=== PATIENT | male | born 1950 | race Caucasian/White ===

== ENCOUNTER 2018-03-13 08:49 | Day surgery (SDC) | payer OTHER ==
[2018-03-13] MEDS ORDERED: diphenhydrAMINE 25 MG CAP PO ONE ×2 (08:52→09:22)
[2018-03-13] MEDS ORDERED: ASPIRIN EC 325 MG TAB PO ONE ×2 (08:52→09:23)
[2018-03-13] MEDS ORDERED: DIAZEPAM 5 MG TAB PO ONE (08:52)
[2018-03-13] MEDS ORDERED: FAMOTIDINE 20 MG TAB PO ONE (08:52)
[2018-03-13] MEDS ORDERED: NS 1,000 ML IV ONE (08:52)
[2018-03-13] MEDS ORDERED: MIDAZOLAM 2 MG/2 ML VIAL IVP ONE (08:54)
[2018-03-13] MEDS ORDERED: fentaNYL 100 MCG/2 ML INJ IVP ONE (08:54)
[2018-03-13] MEDS ORDERED: BENZOCAINE UNIT DOSE SPRAY HURRICAINE MM ONE (08:54)
--- NOTE | 2018-03-13 09:19 | CPEKG ---
Heart Rate: 65 RR Interval: 923 P-R Interval: 160 QRSD Interval: 92 QT Interval: 432 QTC Interval: 450 P [place]: 43 QRS [place]: -11 T Wave [place]: 4 EKG Severity - ABNORMAL ECG - EKG Impression: SINUS RHYTHM EKG Impression: MULTIFORM VENTRICULAR PREMATURE COMPLEXES EKG Impression: BORDERLINE T ABNORMALITIES, INFERIOR LEADS EKG Impression: NON-SPECIFIC ST DEPRESSION Electronically Signed By: Tan Nazario 14-Mar-2018 15:48:10
[2018-03-13] MEDS ORDERED: FAMOTIDINE 20 MG TAB ONE (09:23)
[2018-03-13] MEDS ORDERED: DIAZEPAM 5 MG TAB ONE (09:23)
[2018-03-13 09:29] LABS: PLATELET COUNT 233 10^3/uL (150-400)
[2018-03-13 09:38] LABS: INR 0.91 (0.83-1.16); PROTIME(PATIENT) 12.5 SEC (12.0-15.0)
[2018-03-13] MEDS ORDERED: MIDAZOLAM 2 MG/2 ML VIAL ONE ×2 (09:58→10:48)
--- NOTE | 2018-03-13 09:58 | PDHPUP ---
History & Physical Update H&P update statement: This history and physical update is based on an assessment of the patient which was completed after admission or registration (within 24 hours), but prior to the surgery/procedure. H&P update: H&P reviewed & patient examined, no change in patient's condition since H&P completed
[2018-03-13] MEDS ORDERED: fentaNYL 100 MCG/2 ML INJ ONE ×2 (09:59→10:47)
--- NOTE | 2018-03-13 09:59 | PDPROPOC ---
Sedation Plan of Care Sedation Plan of Care: vital signs stable, mental status noted, patient educated of risks, benefits, alternatives, patient can tolerate sedation ASA Classification: ASA 1 Planned drugs: fentanyl, midazolam Mallampati Score: Class 1 Mallampati Reference Image: Patient passed 3-3-2 rule?: Yes
[2018-03-13] MEDS ORDERED: LIDOCAINE 1% 300 MG/30 ML SDV ONE (10:47)
[2018-03-13] MEDS ORDERED: VERAPAMIL 5 MG/2 ML VIAL ONE (10:48)
[2018-03-13] MEDS ORDERED: HEPARIN 10,000 UNIT/10 ML MDV (1,000 UNIT/ML) ONE (10:48)
[2018-03-13] MEDS ORDERED: IOPAMIDOL (ISOVUE-370) 150 ML BTL IV ONE (10:48)
--- NOTE | 2018-03-13 10:57 | ECHO ---
[email or web address] [address] Main: [phone] Fax: Transesophageal Echocardiography Name: KEVIN MIRANDA MR#: [id number] Study Date: 03/13/2018 Study Time: 09:42 AM Date of : 1950 Age: 67 year(s) Height: ( ) Weight: ( ) BSA: Gender: Male Examination: KRISTIAN Indication: Image Quality: Adequate Contrast: Requested by: Roberto Kauffman Heart Rate: Rhythm: BP: / Procedure Staff Combo Welder: Rena Mccabe [facility] Reading Physician: Roberto Kauffman MD Requesting Provider: Roberto Kauffman KRISTIAN Exam Details Patient Consent: Risks, alternatives of procedure explained to patient, informed consent obtained. Conclusions: Normal size left ventricle. Normal global systolic LV function. The ejection fraction is visually estimated to be 55 %. No regional wall motion abnormality. The left atrium is mildly dilated. An agitated saline study was performed and was negative for intracardiac shunting. Moderate to severe mitral regurgitation. Prolapse of the P2 segment of the mitral valve with possible flail leaflet. Mitral regurgitation jet directed anteriorly. 3D imaging of mitral valve performed. There is flail of the P2 segment with a ruptured chordae.. The aortic valve is normal in appearance and function. The tricuspid valve is normal in appearance and function. Trivial tricuspid valve regurgitation. Measurements: Chambers Valvular Assessment AV/MV Valvular Assessment TV/PV Normal Normal Normal Name Value Range Name Value Range Name Value Range Visual EF: 55 % Additional Measurements: Patient: KEVIN MIRANDA Study Date: 03/13/2018 Page 1 of 2 09:42 AM Findings: Left Ventricle: Normal size left ventricle. No LV hypertrophy. Normal global systolic LV function. The ejection fraction is visually estimated to be 55 %. No regional wall motion abnormality. Unable to assess diastolic dysfunction. Right Ventricle: Normal size right ventricle. Normal RV function. Left Atrium: The left atrium is mildly dilated. An agitated saline study was performed and was negative for intracardiac shunting. Right Atrium: The right atrium is normal in size. Mitral Valve: Moderate to severe mitral regurgitation. Prolapse of the P2 segment of the mitral valve with possible flail leaflet. Mitral regurgitation jet directed anteriorly. 3D imaging of mitral valve performed. There is flail of the P2 segment with a ruptured chordae.. Aortic Valve: The aortic valve is normal in appearance and function. There is no significant aortic valve regurgitation. No aortic valve stenosis is present. Tricuspid Valve: The tricuspid valve is normal in appearance and function. Trivial tricuspid valve regurgitation. Pulmonic Valve: The pulmonic valve is normal in appearance and function. There is no pulmonic regurgitation seen. Aorta: The aorta is normal. Pericardium: No pericardial effusion. No pleural effusion. l1n (No Signature Object) Patient: KEVIN MIRANDA Study Date: 03/13/2018 Page 2 of 2 09:42 AM [id number]
[2018-03-13] MEDS ORDERED: ONDANSETRON 4 MG/2 ML VIAL IVP PRN (11:49)
[2018-03-13] MEDS ORDERED: NITROGLYCERIN 0.4 MG BTL SL PRN (11:49)
[2018-03-13] MEDS ORDERED: ATROPINE SULFATE 1 MG/10 ML SYR IVP PRN (11:49)
[2018-03-13] MEDS ORDERED: HYDROCODONE/APAP 5/325 TAB PO PRN (11:49)
--- NOTE | 2018-03-13 13:42 | GCON ---
[f rep st] CONSULTATION DATE OF CONSULTATION: 03/13/2018 The patient is seen at the request of Dr. Roman Kauffman with the patient's permission. 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 RECOMMENDATIONS: This gentleman should limit his activities until he undergoes surgical intervention . He needs multivessel grafting utilizing 2 arterial conduits and a complex mitral valve repair. Th e risks and complications of surgery were reviewed at length. Alternatives including stenting which is not suitable given his anatomy and diffuse nature of his coronary disease as well as associated mi tral valve disease. Medical therapy would portend a poor prognosis. The patient is understanding of that. Risk of surgery is 1%-2%. Risk of bleeding 1% or 2%. Risk of infection 1% or 2%. Risk of s troke 1%. Carotid ultrasound is pending as is chest x-ray and he will be scheduled in the near fut e. He was advised to come to the ER if the symptoms worsen, with chest pain or shortness of breath i n the interim. CHIEF COMPLAINT: Progressive dyspnea on exertion and chest pressure with any activity. He has noted marked decrease in his stamina and physical activity ability over the last 6 months associated mostl y with shortness of breath and chest heaviness. He has had no PND or orthopnea. He has no previous known cardiac event, although his EKG and echo suggest previous inferior wall myocardial infarction. PAST MEDICAL HISTORY: Medical history is otherwise unremarkable. PAST SURGICAL HISTORY: Surgery history denied. MEDICATIONS: Co Q10, magnesium citrate, nitroglycerin, red yeast and vitamin D3. ALLERGIES: Codeine and he states that his reaction was not effective. FAMILY HISTORY: Positive for early coronary disease in multiple siblings and his father. SOCIAL HISTORY: Does not smoke or drink. He is a professional musician. REVIEW OF SYSTEMS: Except for his current complaints he does admit to anxiety and depression and occ asional dizziness. Otherwise, he is entirely asymptomatic. All 10 systems interrogated. PHYSICAL EXAMINATION: VITAL SIGNS: Blood pressure 120/80, pulse 76, respirations 14, nonlabored. H EENT: Normocephalic, PERRLA, EOMI. NECK: Without bruit, adenopathy, or thyromegaly. HEART: Rate is regular with a murmur, mitral insufficiency across the precordium. LUNGS: Clear. ABDOMEN: Soft , nontender. Bowel sounds are active. RECTAL AND GENITAL: Exams were deferred. NEUROLOGIC: He is grossly intact. Catheterization films reveal left main and severe 3-vessel disease with moderate LV dysfunction. Ech o was as documented. /[id number]/MODL
--- NOTE | 2018-03-13 16:38 | PDDXCAT ---
Diagnostic Cath Note - . 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 Abnormal stress test demonstrating a large fixed inferior defect.) - Procedure Access: left wrist Procedure: left heart catheterization, coronary angiography, left ventriculogram - Materials Left Heart Cath size: 5F Left Heart Cath materials: standard multipack (JL4, JR4, pigtail) - Findings-Left Heart Catheterization LM: Large caliber vessel. Ostial tapering to 80%. Dampening of the blood pressure noted with engagement. 40% mid lesion. LAD: Large caliber, transapical vessel with 2 principal diagonal branches. There is a long tubular 80% lesion in the mid vessel between the principal diagonal branches. In the 1st diagonal there is a mid 60% lesion. LCX: Moderate caliber. 2 obtuse marginal branches identified. The 2nd obtuse marginal contains tandem 80%/50% lesions. RCA: Dominant. The PDA and 2 posterolateral branches are identified. The vessel is mid occluded with both ipsilateral and contralateral collaterals. LVEF: 50%. Global hypokinesis. 3+ mitral regurgitation. Complications: None. Estimated blood loss: <50ml Closure method: TR Band Assessment: 1. Severe left main and three-vessel coronary artery disease as described above. 2. 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 3. Low normal left ventricular systolic function. 4. Symptoms of angina and dyspnea. Plan: The patient will be referred to Cardiovascular surgery regarding surgical epicardial coronary revascularization and mitral valve repair. Intervention: None.
== END 2018-03-13 15:43 | disposition home or self-care (01) ==
LOC: FCATH 08:49
PROVIDERS: ATTEND Internal Medicine Cardiovascular Disease
PROC: 4A023N7 Measurement of Cardiac Sampling and Pressure, Left Heart, Percutaneous Approach (ICD-10-PCS; principal; 2018-03-13)
PROC: B246ZZ4 Ultrasonography of Right and Left Heart, Transesophageal (ICD-10-PCS; principal; 2018-03-13)
PROC: B2151ZZ Fluoroscopy of Left Heart using Low Osmolar Contrast (ICD-10-PCS; principal; 2018-03-13)
DX: I34.1 Nonrheumatic mitral (valve) prolapse (principal); I34.0 Nonrheumatic mitral (valve) insufficiency; I25.119 Atherosclerotic heart disease of native coronary artery with unspecified angina pectoris; R94.39 Abnormal result of other cardiovascular function study; R06.09 Other forms of dyspnea; I77.9 Disorder of arteries and arterioles, unspecified; E78.5 Hyperlipidemia, unspecified; R42 Dizziness and giddiness; F41.9 Anxiety disorder, unspecified; F32.9 Major depressive disorder, single episode, unspecified; Z82.49 Family history of ischemic heart disease and other diseases of the circulatory system
CPT/HCPCS: C1769; J1644; J2250; J3010; Q9967

== ENCOUNTER 2018-03-25 07:15 | Inpatient (IN) | payer OTHER ==
[~2018-03-25 07:15] MED LIST: AMINOCAPROIC ACID 5 GM/20 ML VIAL IV ONE; INSULIN REGULAR HUMAN 100 UNIT in NS 100 ML IV ONE; MANNITOL 25% 12.5 GM/50 ML VIAL IVP ONE; NOREPINEPHRINE BITARTRATE 16 MG in NS 250 ML IV ONE; PHENYLEPHRINE HCL 50 MG in NS 250 ML IV ONE; SODIUM BICARBONATE 20 MEQ, LIDOCAINE 1% 10 ML in NORMOSOL-R 1,000 ML MISC ONE; VERAPAMIL 5 MG, NITROGLYCERIN 2.5 MG, HEPARIN 500 UNIT, SODIUM BICARBONATE 0.2 MEQ in L... MISC ONE
[2018-03-25] MEDS ORDERED: MILRINONE/DEXTROSE/100 ML BAG IV ONE (07:59)
[2018-03-25] MEDS ORDERED: CALCIUM CHLORIDE 1 GM/10 ML INJ ONE ×2 (07:59→08:03)
[2018-03-25] MEDS ORDERED: PROTAMINE SULFATE 50 MG/5 ML VIAL IVP ONE (07:59)
[2018-03-25] MEDS ORDERED: NA BICARBONATE 50 MEQ/50 ML VIAL ONE ×3 (08:00→17:16)
[2018-03-25] MEDS ORDERED: HEPARIN 10,000 UNIT/10 ML MDV (1,000 UNIT/ML) ONE ×2 (08:00→08:03)
[2018-03-25] MEDS ORDERED: DOPamine/DEXTROSE/250 ML BAG IV ONE ×2 (08:00→23:46)
[2018-03-25] MEDS ORDERED: ADENOSINE 6 MG/2 ML VIAL ONE (08:01)
[2018-03-25] MEDS ORDERED: niCARdipine/NACL/200 ML BAG IV ONE (08:01)
[2018-03-25] MEDS ORDERED: AMIODARONE HCL 150 MG/3 ML VIAL ONE ×2 (08:01→08:04)
[2018-03-25] MEDS ORDERED: ceFAZolin 1 GM VIAL ONE (08:01)
[2018-03-25] MEDS ORDERED: ALBUMIN 5% 250 ML BOTTLE IV ONE ×2 (08:02→12:02)
[2018-03-25] MEDS ORDERED: CITRATE DEXTROSE SOLN 500 ML BAG ONE (08:03)
[2018-03-25] MEDS ORDERED: LIDOCAINE 2% 100 MG/5 ML SYR ONE ×2 (08:03→10:36)
[2018-03-25] MEDS ORDERED: MAGNESIUM SULFATE 1 GM/2 ML VIAL ONE (08:04)
[2018-03-25] MEDS ORDERED: methylPREDNISolone SOD SUCC 1 GM/8 ML VIAL ONE (08:04)
[2018-03-25] MEDS ORDERED: MINERAL OIL 10 ML VIAL ONE (08:21)
[2018-03-25] MEDS ORDERED: VERAPAMIL 5 MG/2 ML VIAL ONE (08:22)
[2018-03-25] MEDS ORDERED: CITRATE DEXTROSE SOLN 500 ML BAG MISC ONE (09:22)
[2018-03-25] MEDS ORDERED: niCARdipine/NACL 200 ML IV SCH (09:22)
[2018-03-25] MEDS ORDERED: ceFAZolin 2 GM/SWFI 2 GM/20 ML SYR IVP ONE (09:22)
[2018-03-25] MEDS ORDERED: MUPIROCIN 2% 22 GM OINT NS ONE (09:22)
[2018-03-25] MEDS ORDERED: LR 1,000 ML IV ONE (09:24)
[2018-03-25] MEDS ORDERED: LIDOCAINE 1% 2 ML INJ ID PRN (09:24)
[2018-03-25] MEDS ORDERED: MIDAZOLAM 2 MG/2 ML VIAL IVP ONE (10:17)
--- NOTE | 2018-03-25 10:19 | PDANEPAE ---
ANE History of Present Illness CAD and MR, s/f CABG and MVR ANE Past Medical History - Cardiovascular History Hx Hypertension: No Hx Arrhythmias: No Hx Chest Pain: No Hx Coronary Artery / Peripheral Vascular Disease: Yes Hx CHF / Valvular Disease: Yes Hx Palpitations: No Cardiovascular History Comment: MITRAL VALVE - Pulmonary History Hx COPD: No Hx Asthma/Reactive Airway Disease: No Hx Recent Upper Respiratory Infection: No Hx Oxygen in Use at Home: No Hx Sleep Apnea: No Sleep Apnea Screening Result - Last Documented: Negative - Neurologic History Hx Cerebrovascular Accident: No Hx Seizures: No Hx Dementia: No - Endocrine History Hx Diabetes: No - Renal History Hx Renal Disorders: No - Liver History Hx Hepatic Disorders: No - Neurological & Psychiatric Hx Hx Neurological and Psychiatric Disorders: No - Cancer History Hx Cancer: No - Congenital Disorder History Hx Congenital Disorders: No - GI History Hx Gastrointestinal Disorders: No - Other Health History Other Health History: STREP L NOSTRIL USEING NEOSPORIN. MILD GLAUCOMA NO TREATMENT - Chronic Pain History Chronic Pain: Yes (L RIB CAGE SORE) - Surgical History Prior Surgeries: NONE ANE Review of Systems Review of Systems: - Exercise capacity METS (RN): 4 METS ANE Patient History - Allergies Allergies/Adverse Reactions: codeine Allergy (Verified 03/20/18 15:15) "DOESN'T WORK" - Home Medications Home medications: home medication list seen and reviewed Home Medications: Cholecalciferol Vit D3 [Vitamin D3 (*)] 1,000 units PO DAILY 03/06/18 [Last Taken 03/13/18 07:30] Herbals/Supplements -Info Only 1 ea PO DAILY 03/06/18 [Last Taken 03/13/18 07:30 ] Nitroglycerin [Nitrostat 0.4 mg (*)] 0.4 mg SL Q5M PRN 03/06/18 [Last Taken Unknown] Aspirin [Aspirin 81mg (*)] 81 mg PO DAILY 03/13/18 [Last Taken 03/12/18 08:00] - NPO status NPO Since - Liquids (Date): 03/24/18 NPO Since - Liquids (Time): 23:45 NPO Since - Solids (Date): 03/24/18 NPO Since - Solids (Time): 20:00 - Anes Hx Anes Hx: no prior problems - Smoking Hx Smoking Status: Never smoked - Alcohol Use Alcohol Use: Rarely - Family Anes Hx Family Anes Hx: none Family Hx Anesthesia Complications: NONE ANE Labs/Vital Signs - Labs - CBC WBC: reviewed and okay - Vital Signs Blood Pressure: 156/87 Heart Rate: 69 Respiratory Rate: 16 O2 Sat (%): 94 Height: 167.64 cm Weight: 70.307 kg ANE Physical Exam - Airway Neck exam: FROM Mallampati Score: Class 2 Mouth exam: normal dental/mouth exam - Pulmonary Pulmonary: no respiratory distress - Cardiovascular Cardiovascular: regular rate and rhythym - ASA Status ASA Status: III ANE Anesthesia Plan Anesthesia Plan: general endotracheal anesthesia Lines/Monitors: arterial line, central line, KRISTIAN
[2018-03-25] MEDS ORDERED: MIDAZOLAM 2 MG/2 ML VIAL ONE ×2 (10:22→10:32)
[2018-03-25] MEDS ORDERED: DEXMEDETOMIDINE HCL 400 MCG in NS 100 ML IV SCH (10:30)
[2018-03-25] MEDS ORDERED: PROPOFOL/EMULSION 500 MG/50 ML BOTTLE IV ONE ×2 (10:32→13:33)
[2018-03-25] MEDS ORDERED: fentaNYL 250 MCG/5 ML INJ ONE (10:32)
[2018-03-25] MEDS ORDERED: REMIFENTANIL HCL 1 MG VIAL ONE (10:32)
[2018-03-25] MEDS ORDERED: ROCURONIUM 100 MG/10 ML VIAL ONE (10:36)
[2018-03-25] MEDS ORDERED: LIDOCAINE HCL 160 MG/4 ML LTA KIT TP ONE (10:36)
[2018-03-25] MEDS ORDERED: ONDANSETRON 4 MG/2 ML VIAL ONE (10:36)
[2018-03-25] MEDS ORDERED: DEXAMETHASONE 4 MG/ML VIAL ONE ×2 (10:36)
[2018-03-25] MEDS ORDERED: ESMOLOL HCL 100 MG/10 ML VIAL IV ONE (11:33)
[2018-03-25] MEDS ORDERED: MAGNESIUM SULF 2 GM/WATER 50 ML BAG IV ONE (12:02)
[2018-03-25] MEDS ORDERED: PHENYLEPHRINE HCL 100 MCG/ML SYR ONE ×2 (12:24)
[2018-03-25] MEDS: PAPAVERINE HCL 60 MG/2 ML SDV ONE ×2 (14:31→14:44)
[2018-03-25] MEDS ORDERED: fentaNYL 100 MCG/2 ML INJ ONE (16:05)
[2018-03-25] MEDS ORDERED: SODIUM CL NASAL 45 ML BTL EACHNARE PRN (16:23)
[2018-03-25] MEDS ORDERED: MAGNESIUM SULF 2 GM/WATER 50 ML IV ONE (16:23)
[2018-03-25] MEDS ORDERED: ONDANSETRON DISINTEGRATING 4 MG TAB PO PRN (16:23)
[2018-03-25] MEDS ORDERED: D50W 25 GM/50 ML SYR IVP PRN (16:23)
[2018-03-25] MEDS ORDERED: ONDANSETRON 4 MG/2 ML VIAL IVP PRN (16:23)
[2018-03-25] MEDS ORDERED: POTASSIUM Cl (KCl) 50 ML IV PRN (16:23)
[2018-03-25] MEDS ORDERED: METOCLOPRAMIDE 10 MG/2 ML VIAL IVP PRN (16:23)
[2018-03-25] MEDS ORDERED: PANTOPRAZOLE SODIUM 40 MG VIAL IVP ONE (16:23)
[2018-03-25] MEDS ORDERED: ACETAMINOPHEN 650 MG SUPP PR PRN (16:23)
[2018-03-25] MEDS ORDERED: MEPERIDINE 25 MG/0.5 ML AMP IVP PRN (16:23)
[2018-03-25] MEDS ORDERED: HYDROCODONE/APAP 5/325 TAB PO PRN (16:23)
[2018-03-25] MEDS ORDERED: MAGNESIUM HYDROXIDE 30 ML UDCUP PO PRN (16:23)
[2018-03-25] MEDS ORDERED: LACTULOSE 20 GM/30 ML UDCUP PO PRN (16:23)
[2018-03-25] MEDS ORDERED: CEPACOL LOZENGE PO PRN (16:23)
[2018-03-25] MEDS ORDERED: POLYETHYLENE GLYCOL 3350 17 GM PKT PO PRN (16:23)
[2018-03-25] MEDS ORDERED: fentaNYL 100 MCG/2 ML INJ IVP PRN (16:23)
[2018-03-25] MEDS ORDERED: BISACODYL 10 MG SUPP PR PRN (16:23)
[2018-03-25] MEDS ORDERED: NS 1,000 ML IV SCH (16:30)
[2018-03-25] MEDS ORDERED: INSULIN REGULAR HUMAN 100 UNIT in NS 100 ML IV SCH (16:30)
--- NOTE | 2018-03-25 17:08 | CPEKG ---
Heart Rate: 80 RR Interval: 750 P-R Interval: 188 QRSD Interval: 92 QT Interval: 396 QTC Interval: 457 P [place]: 90 QRS [place]: -32 T Wave [place]: -25 EKG Severity - ABNORMAL ECG - EKG Impression: SINUS RHYTHM EKG Impression: LEFT AXIS DEVIATION EKG Impression: REPOL ABNRM SUGGESTS ISCHEMIA, INFERIOR LEADS EKG Impression: Borderline ST elevations in lateral leads Electronically Signed By: Deandre Yun 26-Mar-2018 11:14:00
[2018-03-25] MEDS ORDERED: SODIUM BICARBONATE 50 MEQ/50 ML SYR IVP ONE (17:15)
--- NOTE | 2018-03-25 17:17 | PDMN ---
Medical Necessity Medical necessity: MCG S390 CABG 4 days [facility] INPT only- CABG X4, MV repair,
--- NOTE | 2018-03-25 18:02 | POSTANESTH ---
Post Anesthetic Evaluation Cardiovascular Status: Tx Hyper/Hypo-tension Respiratory Status: Tx Decrease in SpO2 Level of Consciousness/Mental Status: Mildly Sleepy, Arousable Pain Control: Inadeq, Add Tx Required Nausea/Vomiting Control: Adequate, Prn Tx Ordered Complications Possibly Related to Anesthesia: None Noted
[2018-03-25] MEDS ORDERED: SODIUM BICARBONATE 50 MEQ/50 ML SYR IV ONE (19:00)
[2018-03-25] MEDS: ALBUMIN 5% 250 ML IV PRN ×2 (20:20→23:26)
[2018-03-25] MEDS: SENNOSIDES/DOCUSATE SODIUM TAB PO SCH (21:09)
[2018-03-25] MEDS: ceFAZolin 2 GM/SWFI 2 GM/20 ML SYR IVP SCH (21:15)
[2018-03-25] MEDS: MUPIROCIN 2% 22 GM OINT NS SCH (21:25)
[2018-03-25] MEDS ORDERED: ceFAZolin 2 GM/DEXTROSE 100 ML IV SCH (22:00)
--- NOTE | 2018-03-26 00:41 | GOP ---
[f rep st] OPERATIVE REPORT DATE OF OPERATION: 03/25/2018 SURGEON: Sriram Traylor DO JAILER CHIEF: Bam Baker PA-C. ANESTHESIOLOGIST: Dr. Huertas PREOPERATIVE DIAGNOSIS: 1. Arteriosclerotic heart disease. 2. Severe mitral insufficiency secondary to myxomatous valve disease with a ruptured P2. POSTOPERATIVE DIAGNOSIS: 1. Arteriosclerotic heart disease. 2. Severe mitral insufficiency secondary to myxomatous valve disease with a ruptured P2. PROCEDURE PERFORMED: 1. Coronary artery bypass grafting x4 with left internal mammary artery to the 2nd diagonal, sapheno us vein graft to the 1st diagonal, saphenous vein graft to the 2nd obtuse marginal branch and sapheno us vein graft to the posterior descending artery. 2. AtriClip to the left atrial appendage, 35 mm. 3. Complex mitral valve repair with a P2 resection and a sliding leaflet plasty, with a #30 Physio a nnuloplasty ring. FINDINGS: Patient presented with severe 3-vessel disease and severe mitral insufficiency. DESCRIPTION OF PROCEDURE: He was consented for surgery, brought to the operating room, intubated and monitoring lines were placed. He was prepped and draped in sterile classical manner. Sternotomy wa s performed. The mammary was harvested. Simultaneously, vein was harvested endoscopically from the left leg by CESAR Rascon, who first assisted throughout the procedure. The pericardium was opened , he was heparinized, cannulated, bypass was begun. A cardioplegic arrest was obtained with antegrad e cardioplegia, retrograde cardioplegia, topical hypothermia, and systemic cooling. Initially, the 2nd OM was grafted. It was a 1.4 mm vessel with excellent quality vein which was brou ght off the ascending aorta with a continuous running 5-0 Prolene. We then grafted the PDA, which wa s a good quality 2 mm vessel with excellent vein, which was not at that time brought off the aorta. We then grafted the 1st diagonal with vein graft, which was a 1.5 mm vessel and was anastomosed to th e ascending aorta in standard fashion. We then spent a great deal of time looking for the LAD; after the takeoff of the 2nd diagonal, it dove deep into the septum and despite multiple attempts, I was u nable to identify it. He had no significant distal vessel in order to retrograde probe nor, if we go t into trouble with the mid LAD, would I be able to safely graft him distally and for that reason, I elected to graft the 2nd diagonal which was patent, to the LAD with the mammary, and discussed the ca se with Dr. Rodriguez, who could come back and easily stent his mid LAD and proximal LAD with the other vessels grafted, should he have any evidence of ischemia. The mammary was tacked to the epicardium. We then exposed the mitral valve through the right superior pulmonary vein. A 35 mm AtriClip was albert justa on the outside of the appendage. We then put annuloplasty sutures in circumferentially and expos ed the valve. He had obvious rupture and elongation of P2 and thickening of P1 and P3. A quadrangul ar resection was performed, a sliding leaflet plasty was performed. A partial resection of the P1 an d P3 at the anulus to reduce its height was performed. We then closed that with a continuous running 4-0 Prolene suture. We then approximated the leaflet edges with interrupted Lyons-Chu 6-0 suture. D istention of the ventricle revealed no regurgitation. He was sized for a 30 Physio ring which was lizarraga tured in place with Cor-Knots. Again, distention of the ventricle revealed no regurgitation. The le ft atrium was closed. We then completed the proximal right coronary anastomosis to the ascending aorta. The cross-clamp wa s then removed with suction on the ascending aortic vent. Spontaneous cardiac activity was noted to resume. He was de-aired in Trendelenburg through the apex and ascending aortic vent. No further air was identified. He was weaned from bypass. Transesophageal echo revealed good LV function without evidence of anterior or septal dysfunction, and no mitral regurgitation, and no ZAIRA. Heparin was rev ersed with protamine. The cannula was removed and oversewn. 4 pacing wires, 2 pleural and 1 mediast inal drains were placed. The thymic fat and pericardium were closed. Chest was closed in standard f ashion. Patient was returned to ICU in stable condition. /[id number]/MODL
[2018-03-26] MEDS ORDERED: NALOXONE HCL 0.4 MG/ML INJ IVP PRN (01:47)
[2018-03-26] MEDS ORDERED: HYDROmorphONE/DILAUDID 6 MG/30 ML PCA IV PRN (01:47)
[2018-03-26] MEDS ORDERED: KETOROLAC 30 MG/1 ML SDV IVP ONE ×2 (02:00→16:45)
[2018-03-26 06:04] LABS: INR 1.17 (0.83-1.16); PROTIME(PATIENT) 15.1 SEC (12.0-15.0)
[2018-03-26 06:06] LABS: PLATELET COUNT 104 10^3/uL (150-400)
[2018-03-26] MEDS: HEPARIN 5,000 UNIT/0.5 ML INJ SC SCH ×3 (06:30→21:32)
[2018-03-26] MEDS: ceFAZolin 2 GM/SWFI 2 GM/20 ML SYR IVP SCH ×3 (06:30→21:32)
--- NOTE | 2018-03-26 06:32 | SOAPPROG ---
SOAP Progress Note Assessment/Plan: Assessment: POD#1 CABG x 4 (CALDERON-D2, SV-D1, SV-OM2, SV-PDA), complex MV rpr with #30 Physio ring, prophylactic AtriClip ligation RAOUL Sx CAD - Incomplete revasc with CABG d/t intramuscular LAD. Secondary prevention w baby ASA, BB as allowed by BP, and statin when eating well. ISCM - Old IMI with borderline low LVEF ~50%. Extubated in the OR. Hemodynamically stable overnight on low dose dopa. No dysrhythmias or backup pacing. Adequately diuresing moderate volume overload with stable renal fx. Staggered intro of heart failure meds as appropriate. 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 Antithrombotic prophylaxis with Coumadin, target INR 2-3, duration 3 mo. AF prophylaxis with BB when appropriate. Acute expected blood loss anemia - Stable. No transfusions required. Plan: Routine POD#1 orders re. drains, orals and mobility. Colloid prn CVP < 10. Lasix prn CVP > 18. Transition to oral analgesia. Start coumadin today - 2.5 mg. Probable tx to PCU later today. 03/26/18 06:26 Subjective: Currently comfortable. A little woozy and nauseous getting OOB. Thirsty. Sips of water well tolerated. Objective: Vital Signs Temp Pulse Resp BP Pulse Ox 37.1 C 72 20 96/56 L 90 L 03/26/18 05:00 03/26/18 05:00 03/26/18 05:00 03/26/18 05:00 03/26/18 05:00 Laboratory Results 03/26/18 05:30 03/26/18 05:30 03/25/18 03/26/18 03/27/18 05:59 05:59 05:59 Intake Total 715 Output Total 1970 Balance -1255 PT 15.1 SEC (12.0-15.0) H 03/26/18 05:30 INR 1.17 (0.83-1.16) H 03/26/18 05:30 Dilaudid FIRE EQUIPMENT INSPECTOR for pain. Dopa at 2 mcg for MAP > 65. Arcelia nonfunctional and removed yest. Rhythm sinus, no backup pacing or tachycardia. Adequate fluid balance. No sig CTOP. CXR -> hypoventilation, no PTX, mild pulm vasc congestion, no undrained effusions. 6-8 lpm suppl O2 req, likely d/t splinting. Labs as expected. Physical Exam - Physical Exam General Appearance: alert (when engaged, o/w eyes closed), no apparent distress Respiratory: decreased breath sounds (bases), other (blakes x 3 y-d to pleurovac , serosang drainage, no air leak with weak cough) Cardiac/Chest: regular rate, rhythm, other (Sternotomy CDI. A&V wires intact) Abdomen: non-tender, soft Skin: warm/dry Extremities: swelling (1+ gen. LLE leg wrap intact) ICD10 Worksheet Patient Problems: Problems Problem Status Onset Acute blood loss anemia Acute CAD (coronary artery disease) Acute Mitral regurgitation Acute S/P coronary artery bypass graft x 4 Acute S/P mitral valve repair Acute
[2018-03-26] MEDS: ALBUMIN 5% 250 ML IV PRN ×2 (07:26→07:56)
[2018-03-26] MEDS: ASPIRIN 81 MG CHEWABLE TAB PO SCH (09:19)
[2018-03-26] MEDS: SENNOSIDES/DOCUSATE SODIUM TAB PO SCH ×2 (09:19→21:32)
[2018-03-26] MEDS: PANTOPRAZOLE SODIUM 40 MG TAB PO SCH (09:19)
[2018-03-26] MEDS: MUPIROCIN 2% 22 GM OINT NS SCH ×2 (09:27→22:56)
[2018-03-26] MEDS ORDERED: HYDROmorphone HCL/NS 0.5 MG/ML SYR IVP PRN (10:00)
[2018-03-26] MEDS: HYDROmorphONE/DILAUDID 2 MG TAB PO PRN ×4 (10:13→22:55)
[2018-03-26] MEDS: traMADol 50 MG TAB PO PRN ×3 (13:42→21:32)
--- NOTE | 2018-03-26 15:21 | PDINTPN ---
Fryer Operator Progress Note Assessment/Plan: Assessment: S/P CABG x 4, MV repair: Off pressors, doing well hemodynamically Anemia: Likely due to acute blood loss, volume expansion. No signs of significant ongoing blood loss. Upper airway obstruction: Resolved as sedation/anesthesia wore off. Oxygen saturations good on minimal oxygen. Plan: Follow Hgb. May be able to tolerate out of ICU. 03/26/18 15:22 Subjective: C/O CP related to CTs, mainly with coughing. Denies dyspnea. Appetite returning. Objective: Vital Signs Temp Pulse Resp BP Pulse Ox 36.5 C 72 26 H 110/57 L 93 03/26/18 12:00 03/26/18 14:00 03/26/18 14:00 03/26/18 14:00 03/26/18 14:00 Laboratory Results 03/26/18 05:30 03/26/18 12:25 03/25/18 03/26/18 03/27/18 05:59 05:59 05:59 Intake Total 715 Output Total 1970 650 Balance -1255 -650 PT 15.1 SEC (12.0-15.0) H 03/26/18 05:30 INR 1.17 (0.83-1.16) H 03/26/18 05:30 Physical Exam - Physical Exam General Appearance: alert, no apparent distress EENT: normal ENT inspection Neck: normal inspection Respiratory: chest non-tender, lungs clear Cardiac/Chest: regular rate, rhythm, No edema Abdomen: normal bowel sounds, non-tender Skin: normal color, warm/dry Extremities: normal inspection Neuro/Psych: alert, normal mood/affect, oriented x 3 ICD10 Worksheet Patient Problems: Problems Problem Status Onset Acute blood loss anemia Acute CAD (coronary artery disease) Acute Mitral regurgitation Acute S/P coronary artery bypass graft x 4 Acute S/P mitral valve repair Acute
[2018-03-26] MEDS ORDERED: WARFARIN SODIUM 2.5 MG TAB PO ONE (16:00)
--- NOTE | 2018-03-26 16:31 | GCON ---
[f rep st] CONSULTATION PULMONARY/CRITICAL CARE CONSULTATION DATE OF CONSULTATION: 03/25/2018 REFERRING PHYSICIAN: Sriram Traylor DO REASON FOR REFERRAL: Evaluation and management of anemia and respiratory distress. HISTORY: Mr. Godinez is a 67-year-old male who was in his usual state of good health when he was fo und to have an abnormal electrocardiogram. He was referred to Cardiology, who noted a murmur. He rodriguez d a stress test that showed ST-segment depressions within a reversible inferior defect. An echocardi ogram demonstrated mitral valve prolapse with severe mitral regurgitation. Cardiac catheterization r evealed left main and severe 3 vessel disease with moderate LV dysfunction. He underwent elective lizarraga rgery today with 4 vessel coronary artery bypass grafting, atrial clip, and a complex mitral valve re pair. The procedure was longer than usual, complicated by difficulty accessing the LAD as well as co mplex mitral valve repair. He was given 100 mcg of fentanyl shortly before being brought to the ICU. Upon return to the ICU, he had been extubated but has an oral airway in place and is having some up per airway obstruction requiring intermittent jaw thrust. He is still sedated, not able to answer qu estions. PAST MEDICAL HISTORY: Coronary artery disease. MEDICATIONS: At the time of admission include nitroglycerin and aspirin. ALLERGIES: Codeine. SOCIAL HISTORY: He has never smoked, and drinks alcohol some days. FAMILY HISTORY: Positive for prostate cancer and acute myocardial infarction. REVIEW OF SYSTEMS: Review of systems is unobtainable, as the patient is still sedated. PHYSICAL EXAMINATION: GENERAL: The patient is extubated and occasionally moaning, but not respondin g to commands or questions. VITAL SIGNS: Blood pressure is 118/75 with a heart rate of 81. He is afebrile. Oxygen saturations are 94% on 10 L. HEENT: Normocephalic and atraumatic. No icterus. NECK: No JVD. Trachea is midline. CHEST: Clear to auscultation. He has some sonorous respirations and intermittent upper airway obstr uction, not significantly improved with an oral airway button, but improved with a jaw thrust. He rodriguez s a midline sternotomy scar and mediastinal chest tubes. CARDIAC: Regular rate and rhythm without murmur. ABDOMEN: Soft, nontender. Bowel sounds are hypoa ctive. EXTREMITIES: No clubbing, cyanosis, or edema. NEURO: The patient is sedated and breathing spontaneously. He is not able to follow commands, but h as moved all extremities. LABORATORY: Hemoglobin is 11.9, previously was 15.0. Chemistry group is remarkable for glucose of 1 07. Chest x-ray shows hypoventilation with some pulmonary vascular congestion and basilar atelectasi s. Images reviewed by me. ASSESSMENT: 1. Status post CABG and mitral valve repair. 2. Anemia. This is likely acute blood loss anemia related to cardiovascular surgery. The patient i s hemodynamically stable. Currently with no evidence of ongoing significant blood loss postoperative ly. 3. Acute respiratory failure postoperatively. This is likely due to sedation as well as possibly so me interstitial edema perioperatively. The patient is not controlling his upper airway well. Hopefu lly we can avoid re-intubation as anesthesia and Fentanyl wear off. He does not be need to be re-int ubated at this point. RECOMMENDATIONS: 1. Continue ICU monitoring and close respiratory monitoring. He might benefit from BiPAP if he is h aving problems with his airway occluding until his anesthesia wears off. 2. Follow hemoglobin level. 3. Repeat chest x-ray to follow interstitial edema. /[id number]/MODL
--- NOTE | 2018-03-26 17:15 | ASMTCMCOM ---
CM Note CM Note Notes: 67yr old male admitted for CAD, MR, HLD, CP. Had a CABG x 4 and a MVR. Therapies to eval. Patient reports that he will go to a friend's home on discharge. Date Signed: 03/26/2018 11:46 AM Electronically Signed By:Yenni Carias LCSW
[2018-03-26] MEDS: ACETAMINOPHEN 325 MG TAB PO PRN ×2 (19:03→22:54)
[2018-03-27] MEDS: HYDROmorphONE/DILAUDID 2 MG TAB PO PRN ×5 (02:43→21:10)
[2018-03-27] MEDS: ACETAMINOPHEN 325 MG TAB PO PRN ×4 (02:44→18:05)
[2018-03-27] MEDS: ceFAZolin 2 GM/SWFI 2 GM/20 ML SYR IVP SCH (06:28)
[2018-03-27 06:29] LABS: PLATELET COUNT 100 10^3/uL (150-400)
[2018-03-27 06:42] LABS: INR 1.13 (0.83-1.16); PROTIME(PATIENT) 14.7 SEC (12.0-15.0)
--- NOTE | 2018-03-27 07:24 | SOAPPROG ---
SOAP Progress Note Assessment/Plan: Assessment: POD#2 CABG x 4 (CALDERON-D2, SV-D1, SV-OM2, SV-PDA), complex MV rpr with #30 Physio ring, prophylactic AtriClip ligation RAOUL Sx CAD - Incomplete revasc with CABG d/t intramuscular LAD. Secondary prevention w baby ASA, BB as allowed by BP, and statin when eating well. ISCM - Old IMI with borderline low LVEF ~50%. Extubated in the OR. No prolonged pressor support. No backup pacing. Adequately diuresing moderate volume overload with stable renal fx. Staggered intro of heart failure meds as appropriate. 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 Antithrombotic prophylaxis with Coumadin, target INR 2-3, duration 3 mo. AF prophylaxis with BB as tolerated. Acute expected blood loss anemia - Stable. No transfusions required. Plan: Begin daily IV diuresis. Remove rt pleural tube later and Awires today. Start metoprolol 12.5 mg BID. Cont coumadin. 5 mg today. Cont inc activity as tolerated. 03/27/18 07:24 Subjective: Better than yest. Satisfactory analgesia on dilaudid. Improving appetite and mobility. Objective: Vital Signs Temp Pulse Resp BP Pulse Ox 36.8 C 77 25 H 118/59 L 96 03/27/18 06:00 03/27/18 06:00 03/27/18 06:00 03/27/18 06:00 03/27/18 06:00 Laboratory Results 03/27/18 06:19 03/27/18 06:19 03/26/18 03/27/18 03/28/18 05:59 05:59 05:59 Intake Total 715 1440 Output Total 1970 1540 Balance -1255 -100 PT 14.7 SEC (12.0-15.0) 03/27/18 06:19 INR 1.13 (0.83-1.16) 03/27/18 06:19 Couple 10-12 beat runs NSVT last noc, o/w SR 70s. Holding SBP > 100 off dopa. Suppl O2 needs down to 3 lpm. Balanced I/Os. +6 kg overall. CTOP approaching removal criteria. CXR -> sl inc pulm vasc congestion. Labs ok. INR yet to budge. Physical Exam - Physical Exam General Appearance: alert, no apparent distress Respiratory: crackles (bases, L>R), other (blakes x 3 to bulb suction, thin serosang drainage) Cardiac/Chest: regular rate, rhythm, other (Sternotomy CDI. A&V wires intact.) Abdomen: normal bowel sounds, non-tender, soft Skin: warm/dry Extremities: swelling (trace dependent RLE, 1+ dependent (vein donor) LLE), other (LLE venotomy CDI) ICD10 Worksheet Patient Problems: Problems Problem Status Onset Acute blood loss anemia Acute CAD (coronary artery disease) Acute Mitral regurgitation Acute S/P coronary artery bypass graft x 4 Acute S/P mitral valve repair Acute
[2018-03-27] MEDS ORDERED: FUROSEMIDE 40 MG/4 ML VIAL IVP ONE (07:27)
[2018-03-27] MEDS: HEPARIN 5,000 UNIT/0.5 ML INJ SC SCH ×3 (07:59→21:10)
[2018-03-27] MEDS: ASPIRIN 81 MG CHEWABLE TAB PO SCH (09:44)
[2018-03-27] MEDS: MUPIROCIN 2% 22 GM OINT NS SCH (09:44)
[2018-03-27] MEDS: PANTOPRAZOLE SODIUM 40 MG TAB PO SCH (09:44)
[2018-03-27] MEDS ORDERED: FUROSEMIDE 20 MG/2 ML VIAL ONE ×2 (12:06→12:14)
[2018-03-27] MEDS: SENNOSIDES/DOCUSATE SODIUM TAB PO SCH ×2 (12:12→19:56)
[2018-03-27] MEDS ORDERED: WARFARIN SODIUM 5 MG TAB PO ONE (16:00)
[2018-03-27] MEDS: METOPROLOL TARTRATE 25 MG TAB PO SCH (19:57)
[2018-03-28] MEDS: HYDROmorphONE/DILAUDID 2 MG TAB PO PRN ×4 (04:35→21:58)
[2018-03-28 05:06] LABS: INR 1.19 (0.83-1.16); PROTIME(PATIENT) 15.3 SEC (12.0-15.0)
[2018-03-28] MEDS: HEPARIN 5,000 UNIT/0.5 ML INJ SC SCH ×3 (06:21→21:58)
--- NOTE | 2018-03-28 07:41 | SOAPPROG ---
SOAP Progress Note Assessment/Plan: Assessment: POD#3 CABG x 4 (CALDERON-D2, SV-D1, SV-OM2, SV-PDA), complex MV rpr with #30 Physio ring, prophylactic AtriClip ligation RAOUL Sx CAD - Incomplete revasc with CABG d/t intramuscular LAD. Secondary prevention w baby ASA, BB as allowed by BP, and statin when eating well. Awires and right pleural tube out. ISCM - Old IMI with borderline low LVEF ~50%. Extubated in the OR. No prolonged pressor support. No backup pacing. Adequately diuresing moderate volume overload with stable renal fx. Staggered intro of heart failure meds as appropriate. 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 Antithrombotic prophylaxis with Coumadin, target INR 2-3, duration 3 mo. AF prophylaxis with BB as tolerated. Acute expected blood loss anemia - Stable. No transfusions required. Plan: Switch to oral diuresis. Remove Vwire and mediastinal tube. Cont metoprolol 12.5 mg BID. Cont coumadin 5 mg daily. Cont inc activity as tolerated. Baseline postop echo tomorrow. Dispo - Anticipate home without services in 2 days. 03/28/18 07:38 Subjective: Much more comfortable after rt pleural tube out. Light activity well tolerated. Anticipating BM. No acute concerns. Objective: Vital Signs Temp Pulse Resp BP Pulse Ox 36.6 C 83 16 95/54 L 92 03/28/18 04:42 03/28/18 04:42 03/28/18 04:42 03/28/18 04:42 03/28/18 04:42 Laboratory Results 03/27/18 06:19 03/28/18 04:40 03/27/18 03/28/18 03/29/18 05:59 05:59 05:59 Intake Total 1440 800 Output Total 1540 2340 Balance -100 -1540 PT 15.3 SEC (12.0-15.0) H 03/28/18 04:40 INR 1.19 (0.83-1.16) H 03/28/18 04:40 HR and BP well controlled. Almost off O2. Improving fluid balance. +5 kg overall. Dissipating CTOP. INR yet to budge. - Pending Discharge Pending Discharge Within 48 Hours: Yes Pending Discharge Date: 03/30/18 Pending Discharge Time: 11:00 Physical Exam - Physical Exam General Appearance: alert, no apparent distress Respiratory: decreased breath sounds (bases), other (improved insp effort; blakes x 2 to bulb suction, thin serosang drainage) Cardiac/Chest: regular rate, rhythm, other (Sternum grossly stable. Sternotomy CDI. Vwire intact.) Abdomen: non-tender, soft Skin: warm/dry Extremities: swelling (trace - 1+ dependent), other (LLE venotomy CDI) ICD10 Worksheet Patient Problems: Problems Problem Status Onset Acute blood loss anemia Acute CAD (coronary artery disease) Acute Mitral regurgitation Acute S/P coronary artery bypass graft x 4 Acute S/P mitral valve repair Acute
[2018-03-28] MEDS: SENNOSIDES/DOCUSATE SODIUM TAB PO SCH ×2 (08:28→21:51)
[2018-03-28] MEDS: POTASSIUM CL 10 MEQ TAB PO SCH (08:28)
[2018-03-28] MEDS: PANTOPRAZOLE SODIUM 40 MG TAB PO SCH (08:29)
[2018-03-28] MEDS: FUROSEMIDE 20 MG TAB PO SCH (08:29)
[2018-03-28] MEDS: ASPIRIN 81 MG CHEWABLE TAB PO SCH (08:29)
[2018-03-28] MEDS: METOPROLOL TARTRATE 25 MG TAB PO SCH ×2 (08:30→21:54)
[2018-03-28] MEDS ORDERED: WARFARIN SODIUM 5 MG TAB PO ONE (16:00)
[2018-03-28] MEDS: ACETAMINOPHEN 325 MG TAB PO PRN (21:52)
[2018-03-29] MEDS: ACETAMINOPHEN 325 MG TAB PO PRN ×3 (05:41→15:09)
[2018-03-29] MEDS: HYDROmorphONE/DILAUDID 2 MG TAB PO PRN (05:42)
[2018-03-29] MEDS: HEPARIN 5,000 UNIT/0.5 ML INJ SC SCH ×2 (05:55→15:10)
[2018-03-29 07:01] LABS: INR 1.6 (0.83-1.16); PROTIME(PATIENT) 19.2 SEC (12.0-15.0)
[2018-03-29] MEDS ORDERED: SENNOSIDES/DOCUSATE SODIUM TAB PO PRN (08:07)
--- NOTE | 2018-03-29 08:10 | SOAPPROG ---
SOAP Progress Note Assessment/Plan: Assessment: POD#4 CABG x 4 (CALDERON-D2, SV-D1, SV-OM2, SV-PDA), complex MV rpr with #30 Physio ring, prophylactic AtriClip ligation RAOUL Sx CAD - Incomplete revasc with CABG d/t intramuscular LAD. Secondary prevention w baby ASA, BB, and statin when eating well. TCPWs and 2 of 3 tubes out. ISCM - Old IMI with borderline low LVEF ~50%. Extubated in the OR. No prolonged pressor support. No backup pacing. Adequately diuresing moderate volume overload with stable renal fx. Staggered intro of heart failure meds as allowed by BP. 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 Antithrombotic prophylaxis with Coumadin, target INR 2-3, duration 3 mo. AF prophylaxis with BB as tolerated. Acute expected blood loss anemia - Stable. No transfusions required. Plan: Cont gentle diuresis. Remove left pleural tube. Lighten narc analgesia. Cont metoprolol 12.5 mg BID. Decr coumadin to 2.5 mg today. Baseline postop echo today. Dispo - Anticipate home without services tomorrow. 03/29/18 08:07 Subjective: Feels well. Improving appetite, mobility and IS. +BM. Hopeful for shower and home tomorrow. Objective: Vital Signs Temp Pulse Resp BP Pulse Ox 36.8 C 79 16 100/63 91 L 03/29/18 07:38 03/29/18 07:38 03/29/18 07:38 03/29/18 07:38 03/29/18 07:38 Laboratory Results 03/29/18 06:00 03/29/18 06:00 03/28/18 03/29/18 03/30/18 05:59 05:59 05:59 Intake Total 800 950 Output Total 2340 575 160 Balance -1540 375 -160 PT 19.2 SEC (12.0-15.0) H 03/29/18 06:00 INR 1.60 (0.83-1.16) H 03/29/18 06:00 HR and BP well controlled. Min suppl O2 req. Adequate fluid balance. CTOP at removal criteria. CXR-> hypovent, bibasilar atelectasis. INR on the rise. - Pending Discharge Pending Discharge Within 24 Hours: Yes Pending Discharge Date: 03/30/18 Pending Discharge Time: 11:00 Physical Exam - Physical Exam General Appearance: alert, no apparent distress Respiratory: crackles (bases, L>R), other (miley drain to bulb suction, serosang drainage) Cardiac/Chest: regular rate, rhythm, other (Sternotomy and LLE venotomy CDI) Abdomen: non-tender, soft Skin: warm/dry Extremities: swelling (trace) ICD10 Worksheet Patient Problems: Problems Problem Status Onset Acute blood loss anemia Acute CAD (coronary artery disease) Acute Mitral regurgitation Acute S/P coronary artery bypass graft x 4 Acute S/P mitral valve repair Acute
[2018-03-29] MEDS: HYDROCODONE/APAP 5/325 TAB PO PRN ×3 (10:36→20:05)
[2018-03-29] MEDS: METOPROLOL TARTRATE 25 MG TAB PO SCH ×2 (10:37→20:00)
[2018-03-29] MEDS: ASPIRIN 81 MG CHEWABLE TAB PO SCH (10:38)
[2018-03-29] MEDS: FUROSEMIDE 20 MG TAB PO SCH (10:38)
[2018-03-29] MEDS: PANTOPRAZOLE SODIUM 40 MG TAB PO SCH (10:38)
[2018-03-29] MEDS: POTASSIUM CL 10 MEQ TAB PO SCH (10:38)
--- NOTE | 2018-03-29 11:55 | ECHO ---
[email or web address] [address] [address] Main: [phone] Fax: Transthoracic Echocardiogram Name: KEVIN MIRANDA MR#: [id number] Study Date: 03/29/2018 Study Time: 09:14 AM Date of : 1950 Age: 67 year(s) Height: 167.6 cm (66 in.) Weight: 74.84 kg (165 lb.) BSA: 1.84 m2 Gender: Male Examination: Echo Indication: Post MV replacement, #30 Jeronimo physio ring Image Quality: Contrast: Requested by: Vanesa Russo BP: 100 mmHg/63 mmHg Heart Rate: Rhythm: Indication: Post MV replacement, #30 Jeronimo physio ring Procedure Staff Landfill Attendant: Mikhail Ernst RDCS Reading Physician: Requesting Provider: Measurements: Chambers Valvular Assessment AV/MV Valvular Assessment TV/PV Normal Normal Normal Name Value Range Name Value Range Name Value Range Ao Haylee (MM): 2.8 cm (2.2 cm-3.7 AV Vmax: 1.25 m/s (1 m/s-1.7 TR Vmax: 2.74 mm/s ( - ) cm) m/s) TR PGmax: 30 mmHg ( - ) IVSd (2D): 1.2 cm (0.6 cm-1.1 AV maxP mmHg ( - ) syst. PAP: 35 mmHg ( - ) cm) LVOT Vmax: 0.85 m/s (0.7 m/s-1.1 PV Vmax: 1.07 m/s (0.6 m/s-0.9 LVDd (2D): 5.1 cm (4.2 cm-5.9 m/s) m/s) cm) MV E Vmax: 1.59 m/s ( - ) PV PGmax: 5 mmHg ( - ) LVDs (2D): 3.3 cm (2.1 cm-4 MV A Vmax: 1.09 m/s ( - ) cm) MV E/A: 1.46 ( - ) LVPWd (2D): 1.0 cm (0.6 cm-1 MV meanP mmHg ( - ) cm) MV PHT: 0.071 s ( - ) LVEF (2D): 64 (>=54 %) MVA (PHT): 3.1 s ( - ) Continued Measurements: Chambers Valvular Assessment AV/MV Valvular Assessment TV/PV Name Value Name Value Name Value LADs: 4.6 cm MV DecTime: 257 m/s CVP (est.): 5 mmHg LADs Lon.0 cm MV E' Septal: 0.06 m/s LA Area: 18.5 cm2 MV E/E' Septal: 25.90 LA Volume: 53 ml MV E/E' Lateral: 51.00 LA Volume Index: 28.8 ml/m2 MV VTI: 44.00 cm Findings: Left Ventricle: Patient: KEVIN MIRANDA Study Date: 03/29/2018 Page 1 of 2 09:14 AM Normal size left ventricle. No LV hypertrophy. Normal global systolic LV function. EF is 64 %. No regional wall motion abnormality. Right Ventricle: Normal size right ventricle. No RV hypertrophy. Normal RV function. Left Atrium: The left atrium is normal in size. Right Atrium: The right atrium is normal in size. Mitral Valve: A Mesha-Jeronimo ring prothesis is in place. The mitral valve prosthesis exhibits normal function. The prosthetic mitral valve is normal. No MV prosthesis regurgitation. Aortic Valve: The aortic valve is tri-leaflet and functions normally. There is no aortic valve regurgitation. Tricuspid Valve: The tricuspid valve is normal in appearance and function. Pulmonic Valve: The pulmonic valve is normal in appearance and function. Aorta: The aorta is normal. Pericardium: There is a small posterior pericardial effusion with no evidence of tamponade.. (No Signature Object) Patient: KEVIN MIRANDA Study Date: 03/29/2018 Page 2 of 2 09:14 AM [id number]
[2018-03-29] MEDS ORDERED: HYDROmorphONE/DILAUDID 2 MG TAB PO PRN (12:00)
--- NOTE | 2018-03-29 13:36 | ASMTCMCOM ---
CM Note CM Note Notes: CM spoke w/ CARY Faith regarding d/c POC. Therapies continue to recommend that pt go home without any needs. CM available for changes. Plan: Independent Date Signed: 03/29/2018 01:35 PM Electronically Signed By:RUBEN Lares
[2018-03-29] MEDS ORDERED: POTASSIUM CL 10 MEQ TAB PO ONE (15:36)
[2018-03-29] MEDS ORDERED: FUROSEMIDE 20 MG/2 ML VIAL IVP ONE (15:36)
[2018-03-29] MEDS ORDERED: WARFARIN SODIUM 2.5 MG TAB PO ONE (16:00)
[2018-03-29] MEDS ORDERED: ATORVASTATIN CALCIUM 20 MG TAB PO SCH (21:00)
[2018-03-30] MEDS: HEPARIN 5,000 UNIT/0.5 ML INJ SC SCH ×2 (01:35→10:25)
[2018-03-30] MEDS: ACETAMINOPHEN 325 MG TAB PO PRN ×3 (02:47→11:51)
[2018-03-30] MEDS: HYDROCODONE/APAP 5/325 TAB PO PRN ×3 (02:48→11:51)
[2018-03-30 03:51] LABS: INR 1.61 (0.83-1.16); PROTIME(PATIENT) 19.3 SEC (12.0-15.0)
--- NOTE | 2018-03-30 08:06 | SOAPPROG ---
SOAP Progress Note Assessment/Plan: Assessment: Plan: Subjective: Afebrile VSS NSR Feels great and wants to go home Hct 24.7% K+ 4.1 INR 1.61 Lungs clear Cor RRR w/o m Wound clean Home today Objective: Vital Signs Temp Pulse Resp BP Pulse Ox 37.2 C 90 20 97/59 L 83 L 03/30/18 07:00 03/30/18 07:00 03/30/18 07:00 03/30/18 07:00 03/30/18 07:00 Laboratory Results 03/30/18 03:15 03/30/18 03:15 03/29/18 03/30/18 03/31/18 05:59 05:59 05:59 Intake Total 950 900 Output Total 575 160 Balance 375 740 PT 19.3 SEC (12.0-15.0) H 03/30/18 03:15 INR 1.61 (0.83-1.16) H 03/30/18 03:15 ICD10 Worksheet Patient Problems: Problems Problem Status Onset Acute blood loss anemia Acute CAD (coronary artery disease) Acute Mitral regurgitation Acute S/P coronary artery bypass graft x 4 Acute S/P mitral valve repair Acute
--- NOTE | 2018-03-30 09:26 | SOAPPROG ---
SOAP Progress Note Assessment/Plan: Assessment: POD#5 CABG x 4 (CALDERON-D2, SV-D1, SV-OM2, SV-PDA), complex MV rpr with #30 Physio ring, prophylactic AtriClip ligation RAOUL Sx CAD - Incomplete revasc with CABG d/t intramuscular LAD. Secondary prevention w baby ASA, BB, and statin. TCPWs and chest tubes out. ISCM - Old IMI with borderline low LVEF ~50%. Extubated in the OR. No prolonged pressor support. No backup pacing. Adequately diuresing moderate volume overload with stable renal fx. Staggered intro of heart failure meds as allowed by BP. 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 Antithrombotic prophylaxis with Coumadin, target INR 2-3, duration 3 mo. AF prophylaxis with BB as tolerated. Acute expected blood loss anemia - Worsening, however hemodynamically stable and asymptomatic. No transfusions required. Plan: Start Iron. Cont gentle diuresis. Cont metoprolol 12.5 mg BID. Coumadin 2.5 mg today. Dispo - Home without services today. Coumadin clinic set up for Sunday. Patient was instructed to have CBC checked when he comes here for his f/u appt with Dr. Traylor. Subjective: Patient reports good pain control on current regimen. Patient anxious to go home today. Objective: Vital Signs Temp Pulse Resp BP Pulse Ox 37.2 C 90 20 97/59 L 83 L 03/30/18 07:00 03/30/18 07:00 03/30/18 07:00 03/30/18 07:00 03/30/18 07:00 Laboratory Results 03/30/18 03:15 03/30/18 03:15 03/29/18 03/30/18 03/31/18 05:59 05:59 05:59 Intake Total 950 900 Output Total 575 160 Balance 375 740 PT 19.3 SEC (12.0-15.0) H 03/30/18 03:15 INR 1.61 (0.83-1.16) H 03/30/18 03:15 Physical Exam - Physical Exam General Appearance: WD/WN, alert, no apparent distress Neck: supple Respiratory: decreased breath sounds (bases), crackles (bibasilarly) Cardiac/Chest: regular rate, rhythm, other (no murmurs, rub, gallop.) Abdomen: normal bowel sounds, non-tender, soft Skin: normal color, warm/dry Extremities: other (1+ pitting edema left leg) Neuro/Psych: alert, normal mood/affect, oriented x 3 ICD10 Worksheet Patient Problems: Problems Problem Status Onset Acute blood loss anemia Acute CAD (coronary artery disease) Acute Mitral regurgitation Acute S/P coronary artery bypass graft x 4 Acute S/P mitral valve repair Acute
[2018-03-30] MEDS ORDERED: FERROUS SULFATE 325 MG TAB PO SCH (10:00)
[2018-03-30] MEDS: METOPROLOL TARTRATE 25 MG TAB PO SCH (10:26)
--- NOTE | 2018-03-30 10:28 | PDHOMEO2F ---
Home Oxygen Face to Face Home Orders: I certify that a physician or a nurse practitioner or physician's employment legal assistant has had a wtby-fn-ehun encounter with this patient on the date of this order due to the diagnosis listed, which relates to the primary reason the patient requires home oxygen. Alternative treatments have been tried, or considered, and deemed ineffective. It is anticipated that supplemental oxygen will result in improvement with treatment. Home oxygen qualifying diagnosis: Respiratory insufficiency s/p CABG SpO2 on room air (%): 87 Frequency of home oxygen needed: continuous Home oxygen liters per minute: 2 Home oxygen delivery device: nasal cannula Concentrator: Yes E-tanks for mobility and back up: Yes If ordering portable O2, is the patient mobile in the home?: Yes I certify that, based on these findings, the home oxygen is medically necessary for this patient for the following length of time. Length of time home oxygen needed: 99 years (as needed)
[2018-03-30] MEDS: PANTOPRAZOLE SODIUM 40 MG TAB PO SCH (10:29)
[2018-03-30] MEDS: POTASSIUM CL 10 MEQ TAB PO SCH (10:29)
[2018-03-30] MEDS: FUROSEMIDE 20 MG TAB PO SCH (10:29)
[2018-03-30] MEDS: ASPIRIN 81 MG CHEWABLE TAB PO SCH (10:29)
[2018-03-30 11:25] VITALS: BP 105/70
[2018-03-30] MEDS ORDERED: WARFARIN SODIUM 2.5 MG TAB PO ONE (16:00)
--- NOTE | 2018-03-30 16:11 | ASMTLACE ---
REGINOE Length of stay for Answers: 4-6 days current admission Acuity / Level of Answers: Yes Care: Did the patient have an inpatient admission? Comorbidities - select Answers: Congestive heart failure all that apply Coronary Artery Disease Opioid dependence / Chronic pain # of Emergency department Answers: 1-2 visits in the last 6 months Score: 16 Date Signed: 03/30/2018 04:10 PM Electronically Signed By:Letty Lazaro RN
--- NOTE | 2018-03-30 16:18 | ASDISCHSUM ---
Discharge Information Plan Status:Home with No Needs Medically Cleared to Leave:03/30/2018 Discharge Date:03/30/2018 01:48 PM CM D/C Disposition:Home, Routine, Self-Care ADT D/C Disposition:Home, Routine, Self-Care Projected Discharge Date:03/30/2018 01:48 PM Transportation at D/C:Family Discharge Delay Reason: Follow-Up Date:03/30/2018 01:48 PM Discharge Slot:2 - 12:01 pm - 18:00 pm Final Diagnosis:CABG x 4 (CALDERON), complex MV RPR, CAD, old FL, acute blood loss anemia Placement Information Patient Contact Information Contact Name:ALBA Relationship:Sister Address: City: [facility] Phone: [facility]/Zip Code: Email: Financial Information Financial Class:Medicare Advantage Plans Primary Plan Desc:[facility] [employer] Primary Plan Number:[id number] Secondary Plan Desc: Secondary Plan Number: Assessment Information LACE LACE Length of stay for Answers: 4-6 days current admission Acuity / Level of Answers: Yes Care: Did the patient have an inpatient admission? Comorbidities - select Answers: Congestive heart failure all that apply Coronary Artery Disease Opioid dependence / Chronic pain # of Emergency department Answers: 1-2 visits in the last 6 months Score: 16 Date Signed: 03/30/2018 04:10 PM Electronically Signed By:Letty Lazaro RN [facility] Progress Note CM Note CM Note Notes: 67yr old male admitted for CAD, MR, HLD, CP. Had a CABG x 4 and a MVR. Therapies to eval. Patient reports that he will go to a friend's home on discharge. Date Signed: 03/26/2018 11:46 AM Electronically Signed By:Yenni Carias LCSW [facility] Progress Note CM Note CM Note Notes: CM spoke w/ CARY Faith regarding d/c POC. Therapies continue to recommend that pt go home without any needs. CM available for changes. Plan: Independent Date Signed: 03/29/2018 01:35 PM Electronically Signed By:RUBEN Lares Case Management Discharge Plan Note Case Management Discharge Discharge Order Complete? Answers: Yes Patient to Obtain Answers: Independently Medications Transportation Arranged Answers: Family/Friends Transport will Pick (Date 03/30/2018 12:00 AM & Time) EMTALA Complete Answers: No Notes: N/A Case Management Transport Answers: No Notes: N/A Form Complete Faxed Final Orders Answers: No Notes: N/A Agency/Facility Transfer Answers: No Notes: N/A Report Printed & Faxed to Receiving Agency Family Notified Answers: Yes Notes: At bedside Discharge Comments Notes: Reviewed chart, spoke with CARY Andrew regarding discharge plan of care, pt's progress. Per Lorrie, pt to discharge home independently with family support and no identified needs except home oxygen. RT arranged all O2 services. PT/OT cleared pt for home. Pt to follow up as directed. Outpatient cardiac rehab recommended. No IM signed, pt left prior to signing. CM available for any further issues or concerns. Discharge Plan: Home independently with family support Date Signed: 03/30/2018 04:16 PM Electronically Signed By:Letty Lazaro RN Intervention Information Intervention Type:IM-Pt. Not Available Date of Service:03/30/2018 04:16 PM Patient Type:Inpatient Staff Member:CARY Lazaro Taylor Hours: Discipline: Severity: Comment:Pt left prior to signing.
--- NOTE | 2018-03-31 14:33 | GDS ---
[f rep st] DISCHARGE SUMMARY DISCHARGE DIAGNOSES: 1. Coronary artery disease. 2. 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 CONDITION AT DISCHARGE: Stable. HOSPITAL COURSE: Patient was taken electively to the operating room by Dr. Sriram Traylor on March 252017 where he underwent coronary artery bypass grafting x4, as well as complex mitral valve repair and ligation of left atrial appendage. Patient had incomplete revascularization with CABG d/t an intramuscular LAD. He tolerated the procedure well and was transferred to the ICU in stable condition. Of note, the patient was extubated in the operating room and initially required low dose dopamine for hemodynamic stability overnight. Patient was weaned off of Dopamine by POD1 and was transferred to PCU. He was initiated on Coumadin for his mitral valve bioprosthesis with a target INR of 2 to 3, which he will need to remain on for a duration of 3 months. Patient's chest tubes and pacing wires were removed without difficulty. A postop echocardiogram was performed, which showed an EF of 64% and a mitral valve prosthesis which demonstrated normal function with no prosthetic regurgitation. Patient's pain was controlled and he was tolerating his diet and moving his bowels. He was deemed appropriate for discharge to home on postoperative day 5. Patient was set up for Coumadin Clinic on Sunday and was instructed to have his CBC checked when he comes here for his followup appointment with Dr. Traylor since he was found to have a drop in his hematocrit down to 24.7 at the time of discharge. However, since patient was asymptomatic with normal vital signs, he was discharged home on iron for this. Patient was also instructed to follow up with his newspaper delivery driver. DISCHARGE MEDICATIONS: 1. Tylenol 500 mg p.o. q.6 h. p.r.n. pain. 2. Lipitor 20 mg p.o. q.h.s. 3. Iron 325 mg p.o. b.i.d. for 14 days. 4. Lasix 20 mg p.o. daily for 7 days. 5. [place] 5/325 mg half a tablet p.o. q.6 h. p.r.n. pain. 6. Metoprolol tartrate 12.5 mg p.o. b.i.d. 7. Potassium chloride 10 mEq p.o. daily for 7 days. 8. Coumadin 2.5 p.o. daily. 9. Vitamin B3 1000 units p.o. daily. 10. Nitrostat 0.4 mg sublingual q.5 p.r.n. 11. Aspirin 81 mg p.o. daily. PHYSICAL EXAMINATION: GENERAL APPEARANCE: Well-developed, well-nourished, alert, in no apparent distress, and alert. NECK: Supple. RESPIRATORY: Decreased breath sounds at the bases with bibasilar crackles. CARDIAC/CHEST: Regular rate and rhythm. No murmurs, rubs, or gallops. ABDOMEN: Normal bowel sounds. Nontender, soft. SKIN: Normal color, warm and dry. EXTREMITIES: 1+ pitting edema of the left leg. NEURO/PSYCH: Alert. Normal mood and affect and oriented x3. DISCHARGE INSTRUCTIONS: 1. Patient was instructed to observe sternal precautions for 6 to 8 weeks. 2. He was also instructed not to drive for 2 weeks or for as long as he is taking narcotic pain medication. 3. He was instructed to shower daily cleaning his incisions with soap and water. He is not allowed to submerge his incisions in a bath, swimming pool, or hot tub until all of his incisions are completely healed. 4. He was told to continue with a cardiac diet and to increase his activity as tolerated observing the sternal precautions. 5. He was instructed to contact cardiac rehab. FOLLOWUP APPOINTMENTS: Patient was instructed to follow up with Dr. Traylor as directed, and he was also instructed to follow up with his newspaper delivery driver. /[id number]/MODL MTDD
== END 2018-03-30 13:48 | disposition home or self-care (01) | DRG 221 ==
LOC: F2W 09:25 → F2N 09:59 → F2W 03-28 12:35
PROVIDERS: ADMIT Thoracic Surgery (Cardiothoracic Vascular Surgery); ATTEND Thoracic Surgery (Cardiothoracic Vascular Surgery)
PROC: 02L70CK Occlusion of Left Atrial Appendage with Extraluminal Device, Open Approach (ICD-10-PCS; principal; 2018-03-25 11:00)
PROC: 02UG0JZ Supplement Mitral Valve with Synthetic Substitute, Open Approach (ICD-10-PCS; principal; 2018-03-25 11:00)
PROC: 06BQ4ZZ Excision of Left Saphenous Vein, Percutaneous Endoscopic Approach (ICD-10-PCS; principal; 2018-03-25 11:00)
PROC: 5A1221Z Performance of Cardiac Output, Continuous (ICD-10-PCS; principal; 2018-03-25 11:00)
PROC: 021209W Bypass Coronary Artery, Three Arteries from Aorta with Autologous Venous Tissue, Open Approach (ICD-10-PCS; principal; 2018-03-25 11:00)
PROC: 02100Z9 Bypass Coronary Artery, One Artery from Left Internal Mammary, Open Approach (ICD-10-PCS; principal; 2018-03-25 11:00)
DX: I34.1 Nonrheumatic mitral (valve) prolapse (principal); I25.10 Atherosclerotic heart disease of native coronary artery without angina pectoris; E78.5 Hyperlipidemia, unspecified
CPT/HCPCS: 82947-QW; 97116-GP; 97161-GP; 97165-GO; 97530-GP; 97535-GO; G8978-GP-CI; G8978-GP-CJ; G8979-GP-CI; G8980-GP-CI; G8987-GO-CL; G8988-GO-CI; J0153; J0282; J0690; J1100; J1170; J1265; J1644; J1815; J1885; J1940; J2001; J2150; J2250; J2260; J2270; J2370; J2405; J2440; J2704; J2720; J2765; J2930; J3010; J3475; J7060; P9041

== ENCOUNTER → 2018-04-09 | Outpatient (CLI) | payer OTHER | LOC: FIMAGING 08:50 | PROVIDERS: ATTEND Thoracic Surgery (Cardiothoracic Vascular Surgery) | DX: Z95.2 Presence of prosthetic heart valve (principal); Z95.1 Presence of aortocoronary bypass graft; Z98.890 Other specified postprocedural states ==

== ENCOUNTER 2018-04-10 13:59 | Emergency (ER) | payer OTHER ==
--- NOTE | 2018-04-10 14:18 | CPEKG ---
Heart Rate: 87 RR Interval: 690 P-R Interval: 176 QRSD Interval: 90 QT Interval: 376 QTC Interval: 453 P [place]: 52 QRS [place]: -20 T Wave [place]: 126 EKG Severity - ABNORMAL ECG - EKG Impression: SINUS RHYTHM EKG Impression: ABNORMAL T, CONSIDER ISCHEMIA, LATERAL LEADS Electronically Signed By: Bam Morton 10-Apr-2018 14:26:16
--- NOTE | 2018-04-10 14:19 | EDPHY ---
H & P Stated Complaint: LIGHTHEADED POST CABG Time Seen by Provider: 04/10/18 14:19 HPI/ROS: CHIEF COMPLAINT: Presyncope HISTORY OF PRESENT ILLNESS: The patient presents the emergency department with complaints of presyncope. The patient is status post CABG in complicated mitral valve repair on January 23. He was discharged home uneventfully. The patient is currently taking metoprolol 12.5 mg twice daily. He reports normal fluid intake today. The patient denies any fever, cough or congestion. The patient denies any asymmetric calf pain or swelling. The patient denies additional complaints. REVIEW OF SYSTEMS: A comprehensive 10 point review of systems is otherwise negative aside from elements mentioned in the history of present illness. Source: Patient Exam Limitations: No limitations - Personal History Current Tetanus Diphtheria and Acellular Pertussis (TDAP): Unsure - Medical/Surgical History Hx Asthma: No Hx Chronic Respiratory Disease: No Hx Diabetes: No Hx Cardiac Disease: Yes Hx Renal Disease: No Hx Cirrhosis: No Hx Alcoholism: No Hx HIV/AIDS: No Hx Splenectomy or Spleen Trauma: No Other PMH: MV regurgitation, CAD, L nares epistaxis. mild glaucoma/CABG - Social History Smoking Status: Never smoked - Physical Exam Exam: General Appearance: Alert, no distress Eyes: Pupils equal and round no pallor or injection ENT, Mouth: Mucous membranes moist Respiratory: There are no retractions, lungs are clear to auscultation Cardiovascular: Regular rate and rhythm Gastrointestinal: Abdomen is soft and nontender, no masses, bowel sounds normal Neurological: A&O, normal motor function, normal sensory exam, normal cranial nerves Skin: Surgical incision clean dry and intact Musculoskeletal: Neck is supple nontender Extremities: symmetrical, full range of motion Psychiatric: Patient is oriented X 3, there is no agitation Constitutional: Initial Vital Signs Temperature (C) 36.7 C 04/10/18 14:05 Heart Rate 91 04/10/18 14:05 Respiratory Rate 19 04/10/18 14:05 Blood Pressure 122/83 H 04/10/18 14:05 O2 Sat (%) 93 04/10/18 14:05 O2 Delivery Mode Room Air Allergies/Adverse Reactions: codeine Allergy (Verified 04/10/18 14:03) "DOESN'T WORK" Home Medications: Medication Instructions Recorded Cholecalciferol Vit D3 [Vitamin D3 1,000 units PO DAILY 03/06/18 (*)] Herbals/Supplements -Info Only 1 ea PO DAILY 03/06/18 Nitroglycerin [Nitrostat 0.4 mg 0.4 mg SL Q5M PRN 03/06/18 (*)] Aspirin [Aspirin 81mg (*)] 81 mg PO DAILY 03/13/18 Acetaminophen [Tylenol 325mg (*)] 500 mg PO Q6HRS PRN #50 tab 03/30/18 Atorvastatin Calcium [Lipitor 20 20 mg PO HS #90 tab 03/30/18 mg (*)] Ferrous Sulfate [Ferrous Sulf 325 325 mg PO BID 14 Days tab 03/30/18 MG (*)] Hydrocodone/APAP 5/325 [[place] 0.5 tab PO Q6H PRN #30 tab 03/30/18 5/325 (*)] Metoprolol Tartrate [Lopressor 25 12.5 mg PO BID 90 Days tab 03/30/18 mg (*)] Warfarin Sodium [Coumadin 2.5MG 2.5 mg PO DAILY #90 tab 03/30/18 (*)] Medical Decision Making - Diagnostics EKG Interpretation: EKG: Complete interpretation has been separately recorded in the [employer] archive. Summary impression: Sinus rhythm, nonspecific changes noted in the lateral leads Imaging Results: Imaging Impressions Chest X-Ray 04/10/18 14:20 Impression: Stable chest post cardiac surgery. Mild parenchymal scarring in the lingula, unchanged.. ED Course/Re-evaluation: The patient presents to the ED after an episode of presyncope. The patient was noted to be normotensive in the emergency department. He has no significant arrhythmia noted on his EKG. The patient has no evidence of a critical anemia. The patient's electrolytes are within normal limits. His chest x-ray demonstrates no significant effusion. The patient was observed in the emergency department without arrhythmia. I did discuss the case with his cardiothoracic surgeon Dr. Ramirez. We will discontinue the patient's beta-pérez at this point time. He will follow up with CT surgery in the office on Sunday. The patient does understand return to the ED for recurrent syncope, chest pain or difficulty breathing. Differential Diagnosis: Differential diagnosis considered includes arrhythmia, anemia, dehydration, metabolic abnormality - Data Points Laboratory Results: Laboratory Results 04/10/18 14:45 04/10/18 14:45 04/10/18 04/10/18 14:45 14:45 WBC 9.41 10^3/uL 10^3/uL (3.80-9.50) RBC 3.35 10^6/uL L 10^6/uL (4.40-6.38) Hgb 10.3 g/dL L g/dL (13.7-17.5) Hct 31.5 % L % (40.0-51.0) MCV 94.0 fL fL (81.5-99.8) MCH 30.7 pg pg (27.9-34.1) MCHC 32.7 g/dL g/dL (32.4-36.7) RDW 13.8 % % (11.5-15.2) Plt Count 491 10^3/uL H 10^3/uL (150-400) MPV 8.5 fL L fL (8.7-11.7) Neut % (Auto) 74.9 % H % (39.3-74.2) Lymph % (Auto) 14.8 % L % (15.0-45.0) [place] % (Auto) 6.5 % % (4.5-13.0) Eos % (Auto) 2.9 % % (0.6-7.6) Baso % (Auto) 0.5 % % (0.3-1.7) Nucleat RBC Rel Count 0.0 % % (0.0-0.2) Absolute Neuts (auto) 7.05 10^3/uL H 10^3/uL (1.70-6.50) Absolute Lymphs (auto) 1.39 10^3/uL 10^3/uL (1.00-3.00) Absolute Monos (auto) 0.61 10^3/uL 10^3/uL (0.30-0.80) Absolute Eos (auto) 0.27 10^3/uL 10^3/uL (0.03-0.40) Absolute Basos (auto) 0.05 10^3/uL 10^3/uL (0.02-0.10) Absolute Nucleated RBC 0.00 10^3/uL 10^3/uL (0-0.01) Immature Gran % 0.4 % % (0.0-1.1) Immature Gran # 0.04 10^3/uL 10^3/uL (0.00-0.10) Sodium 137 mEq/L mEq/L (135-145) Potassium 4.7 mEq/L mEq/L (3.3-5.0) Chloride 100 mEq/L mEq/L (97-110) Carbon Dioxide 25 mEq/l mEq/l (22-31) Anion Gap 12 mEq/L mEq/L (8-16) BUN 15 mg/dL mg/dL (7-23) Creatinine 0.9 mg/dL mg/dL (0.7-1.3) Estimated GFR > 60 Glucose 131 mg/dL H mg/dL (70-100) Calcium 9.0 mg/dL mg/dL (8.5-10.4) Departure - Departure Disposition: Home, Routine, Self-Care Clinical Impression: Pre-syncope Condition: Good Instructions: Near Syncope (ED) Additional Instructions: 1. Please discontinue your metoprolol. 2. Return to the ED for recurrent chest pain, fever, difficulty breathing or other concerns. 3. Please follow up with Dr. Traylor on Sunday for recheck. Referrals: Sriram Traylor DO [Doctor of Osteopathy] - As per Instructions
[2018-04-10 14:55] LABS: PLATELET COUNT 491 10^3/uL (150-400)
[2018-04-10 16:03] VITALS: BP 128/86
== END 2018-04-10 16:04 | disposition home or self-care (01) ==
DX: R55 Syncope and collapse (principal); I25.810 Atherosclerosis of coronary artery bypass graft(s) without angina pectoris; Z79.01 Long term (current) use of anticoagulants; Z79.82 Long term (current) use of aspirin

== ENCOUNTER 2018-05-15 11:22 | Inpatient (IN) | payer OTHER ==
--- NOTE | 2018-05-15 11:22 | EDPHY ---
H & P Time Seen by Provider: 05/15/18 11:22 HPI/ROS: CHIEF COMPLAINT: Severe dizziness HISTORY OF PRESENT ILLNESS: Started at 9:30 a.m. Doing light chores around the house. Arrives by EMS with severe dizziness which he describes as the room spinning worse with movement associated with severe nausea and vomiting. Symptoms still persist. They are severe. Not associated with weakness or numbness in extremities or headache or speech difficulty. Definitely worse with movement. REVIEW OF SYSTEMS: Eye: no change in vision or double vision ENT: no sore throat Cardiac: no chest pain or syncope Pulmonary: no cough or SOB Abdomen: no diarrhea, or abdominal pain Musculoskeletal: no back pain or neck pain Skin: no rash Neuro: no headache Constitutional: no fever : no urinary symptoms A comprehensive 10 point review of systems is otherwise negative aside from elements mentioned in the history of present illness. PAST MEDICAL HISTORY: Cardiac bypass 7 weeks ago, glaucoma Social history: Nonsmoker General Appearance: Alert and conversant, cooperative. Eyes: No scleral icterus. Pupils equal reactive extraocular motion intact, horizontal nystagmus to the left. No vertical nystagmus. No skew. Dolls eyes is equivocal. ENT, Mouth: Normal mucous membranes. Respiratory: Normal respiratory effort, breath sounds equal, lungs are clear to auscultation. Cardiovascular: Regular rate and rhythm. Gastrointestinal: Abdomen is soft and non tender. Neurological: Alert, face symmetric, normal motor and sensory in extremities. [id number] normal bilaterally, no pronator drift. Speech is fluent. Skin: Warm and dry, no rashes. Musculoskeletal: No peripheral edema. Psychiatric: Not agitated. Emergency Department course/MDM: Patient received Zofran and Phenergan pre-hospital, oral meclizine given on arrival. 1207: Repeat meclizine and CT CT angio scanning. 1308: CT imaging and angiography negative per Jessica. Still very symptomatic, admit for symptomatic treatment for likely peripheral vertigo. Central cerebellar stroke is not 100% excluded but I think it is less likely, he does not have any evidence of a large vessel occlusion. Constitutional: Initial Vital Signs Temperature (C) 36.7 C 05/15/18 11:31 Heart Rate 109 H 05/15/18 11:31 Respiratory Rate 16 05/15/18 11:31 Blood Pressure 154/107 H 05/15/18 11:31 O2 Sat (%) 96 05/15/18 11:31 O2 Delivery Mode Nasal Cannula O2 (L/minute) 2 Allergies/Adverse Reactions: codeine Allergy (Verified 04/10/18 14:03) "DOESN'T WORK" Home Medications: Medication Instructions Recorded Cholecalciferol Vit D3 [Vitamin D3 1,000 units PO DAILY 03/06/18 (*)] Herbals/Supplements -Info Only 1 ea PO DAILY 03/06/18 Aspirin [Aspirin 81mg (*)] 81 mg PO DAILY 03/13/18 Acetaminophen [Tylenol 325mg (*)] 500 mg PO Q6HRS PRN #50 tab 03/30/18 Atorvastatin Calcium [Lipitor 20 20 mg PO HS #90 tab 03/30/18 mg (*)] Metoprolol Tartrate [Lopressor 25 12.5 mg PO BID 90 Days tab 03/30/18 mg (*)] Warfarin Sodium [Coumadin 5MG (*)] 5 mg PO HS 05/15/18 Medical Decision Making - Diagnostics EKG Interpretation: 12-lead EKG interpreted by me; official reading is in trace master. My interpretation is sinus tachycardia rate 111 with left axis and nonspecific lateral T-wave abnormalities. Imaging Results: Imaging Impressions Head CT 05/15/18 12:07 Impression: Nothing acute identified. No source for vertigo detected. General information for patients regarding this examination can be found at [employer]. If you have questions or comments about this report, please contact me at (hospital) or [phone] (cell). Head CTA 05/15/18 12:07 Impression: Normal CT angiogram of the brain. Results called and discussed with OSCAR MIRANDA, at 05/15/2018 13:04 Neck CTA 05/15/18 12:07 Impression: Normal. Specifically no vertebral artery pathology identified. Recommendation: Brain MRI might be useful in this patient. Results called and discussed with OSCAR MIRANDA, at 05/15/2018 13:07 Note: All stenoses are calculated using NASCET Criteria. General information for patients regarding this examination can be found at [employer]. If you have questions or comments about this report, please contact me at (hospital) or [phone] (cell). Imaging: Discussed imaging studies w/ call center nurse Radiologist Differential Diagnosis: Differential diagnosis considered for dizziness including but not limited to peripheral and central causes of vertigo, orthostatic causes including dehydration, and blood loss. Consult/Admit Bed Type: [facility] - Data Points Laboratory Results: Laboratory Results 05/15/18 11:20 05/15/18 11:20 05/15/18 05/15/18 11:20 11:20 WBC 10.49 10^3/uL H 10^3/uL (3.80-9.50) RBC 4.67 10^6/uL 10^6/uL (4.40-6.38) Hgb 14.1 g/dL g/dL (13.7-17.5) Hct 42.8 % % (40.0-51.0) MCV 91.6 fL fL (81.5-99.8) MCH 30.2 pg pg (27.9-34.1) MCHC 32.9 g/dL g/dL (32.4-36.7) RDW 13.2 % % (11.5-15.2) Plt Count 313 10^3/uL 10^3/uL (150-400) MPV 9.0 fL fL (8.7-11.7) Neut % (Auto) 46.5 % % (39.3-74.2) Lymph % (Auto) 41.8 % % (15.0-45.0) [place] % (Auto) 8.3 % % (4.5-13.0) Eos % (Auto) 2.1 % % (0.6-7.6) Baso % (Auto) 1.0 % % (0.3-1.7) Nucleat RBC Rel Count 0.0 % % (0.0-0.2) Absolute Neuts (auto) 4.89 10^3/uL 10^3/uL (1.70-6.50) Absolute Lymphs (auto) 4.38 10^3/uL H 10^3/uL (1.00-3.00) Absolute Monos (auto) 0.87 10^3/uL H 10^3/uL (0.30-0.80) Absolute Eos (auto) 0.22 10^3/uL 10^3/uL (0.03-0.40) Absolute Basos (auto) 0.10 10^3/uL 10^3/uL (0.02-0.10) Absolute Nucleated RBC 0.00 10^3/uL 10^3/uL (0-0.01) Immature Gran % 0.3 % % (0.0-1.1) Immature Gran # 0.03 10^3/uL 10^3/uL (0.00-0.10) Sodium 141 mEq/L mEq/L (135-145) Potassium 4.1 mEq/L mEq/L (3.3-5.0) Chloride 107 mEq/L mEq/L (97-110) Carbon Dioxide 20 mEq/l L mEq/l (22-31) Anion Gap 14 mEq/L mEq/L (8-16) BUN 17 mg/dL mg/dL (7-23) Creatinine 0.9 mg/dL mg/dL (0.7-1.3) Estimated GFR > 60 Glucose 130 mg/dL H mg/dL (70-100) Calcium 9.8 mg/dL mg/dL (8.5-10.4) Medications Given: Discontinued Medications Meclizine HCl (Meclizine Hcl) 25 mg PO EDNOW ONE Stop: 05/15/18 11:33 Last Admin: 05/15/18 11:36 Dose: 25 mg Meclizine HCl (Meclizine Hcl) 25 mg PO EDNOW ONE Stop: 05/15/18 12:08 Last Admin: 05/15/18 12:23 Dose: 25 mg Departure - Departure Disposition: [facility] Clinical Impression: Vertigo Condition: Good
[2018-05-15] MEDS ORDERED: MECLIZINE HCL 25 MG TAB PO ONE ×2 (11:32→12:07)
[2018-05-15 11:37] LABS: PLATELET COUNT 313 10^3/uL (150-400)
--- NOTE | 2018-05-15 11:40 | CPEKG ---
Heart Rate: 111 RR Interval: 541 P-R Interval: 172 QRSD Interval: 86 QT Interval: 344 QTC Interval: 468 P [place]: 49 QRS [place]: -30 T Wave [place]: 139 EKG Severity - ABNORMAL ECG - EKG Impression: SINUS TACHYCARDIA EKG Impression: LEFT AXIS DEVIATION EKG Impression: NONSPECIFIC REPOL ABNORMALITY, LATERAL LEADS Electronically Signed By: Ed Benavides 15-May-2018 13:28:20
[2018-05-15] MEDS ORDERED: IOPAMIDOL (ISOVUE 370) 100 ML BTL IV ONE (12:15)
[2018-05-15] MEDS ORDERED: PROMETHAZINE HCL 25 MG/ML INJ IVP PRN (14:59)
[2018-05-15] MEDS ORDERED: ACETAMINOPHEN 325 MG TAB PO PRN (14:59)
[2018-05-15 15:43] LABS: INR 1.9 (0.83-1.16); PROTIME(PATIENT) 21.9 SEC (12.0-15.0)
[2018-05-15] MEDS ORDERED: MECLIZINE HCL 25 MG TAB PO PRN (16:19)
[2018-05-15] MEDS: NS 1,000 ML IV SCH (16:37)
--- NOTE | 2018-05-15 16:45 | GHP ---
[f rep st] HISTORY AND PHYSICAL DATE OF ADMISSION: 05/15/2018 CHIEF COMPLAINT: Vertigo. HISTORY: The patient is a 67-year-old male who underwent CABG with Dr. Traylor on March 25. He also had a mitral valve repair, left atrial appendage ligation. Surgery was complicated by incomplete revasc ularization secondary to an intramuscular LAD. He was doing relatively well, however, post discharge until today when he developed acute onset of vertigo. This started acutely at 11 a.m.. He was vicki ding at the top of the stairs, suddenly had such vertigo he had to grab onto the wall and slid down t o the floor, and called out to his housemates. Any head movement causes severe spinning. He has had profuse nausea and vomiting. He had 1 less severe episode a couple weeks ago that resolved spontane ously after 1 hour. PAST MEDICAL HISTORY: 1. Coronary artery disease, status post CABG less than 2 months ago. 2. Mitral valve repair. 3. Left atrial appendage ligation. 4. Incomplete revascularization secondary to intramuscular LAD. 5. Glaucoma. MEDICATIONS: Please see computer record for full detailed list. ALLERGIES: Codeine. SOCIAL HISTORY: No smoking. No alcohol. Lives with housemates. REVIEW OF SYSTEMS: Complete review of systems obtained. Review of systems negative for constitution al, HEENT, GI, pulmonary, cardiovascular, , hematologic, endocrine, psych, except for positives as in HPI. FAMILY HISTORY: Reviewed, noncontributory to presenting complaint. PHYSICAL EXAMINATION: GENERAL APPEARANCE: Well-developed, well-nourished male, in no acute distress . VITAL SIGNS: Temperature is 36.6, pulse 109, blood pressure 125/90, satting 96% on room air. EYE S: Normal conjunctivae. Pupils react to light. ENT: Normal ears, nose. Hearing intact. Normal t eeth. Oropharynx moist. NECK: Trachea midline. No thyromegaly. CHEST: Normal except lungs show bilaterally. CARDIOVASCULAR: Regular rhythm. No murmur. No extremity edema. ABDOMEN: Soft, nontender. No hepatosplenomegaly. SKIN: Warm, dry, intact. No rash. MUSCULOSKELETAL: No cyanosis or clubbing. Strength 5/5 upper and lower extremities. NEURO: Cranial nerves intact. Nor mal sensation to light touch. PSYCH: Alert, oriented x3. Normal affect. Normal judgment. Normal memory. LABORATORY DATA: White count 10.49, hematocrit 42.8, platelets 313. Sodium 141, potassium 4.1, chlo ride 107, bicarb 20, BUN 17, creatinine 0.9, glucose 130. Head CT is negative. CT angiogram of the head and neck is negative. EKG viewed by me, my personal interpretation is normal. Normal sinus rhy thm. No ST-T wave changes. MEDICAL RECORDS REVIEW: I reviewed CT surgery records including operative reports; it was summarized above. ASSESSMENT AND PLAN: 1. Benign positional vertigo. This is severe acute onset. He is unable to ambulate and has intract able nausea and vomiting. We will consult Physical Therapy for Shahzad-Hallpike maneuver. Will treat lizarraga pportively with antinausea medications and meclizine. Given the recurrent nature, I think labyrinthi tis is less likely. He is also already on aspirin and Coumadin post CT surgery, so I think an ischem ic stroke is also less likely given the fact his CT angiogram of the head and neck is unremarkable. If it persists for a prolonged period of time could consider MRI but my suspicion is very high at thi s point, that it is a peripheral issue. 2. Coronary artery disease, status post recent coronary artery bypass graft and mitral valve repair. Plan is warfarin for 3 months post surgery with a goal INR of 2-3. CODE STATUS: Full. ADMISSION STATUS: Will admit to observation. Reevaluate tomorrow for ongoing need for hospitalizati on. DVT PROPHYLAXIS: He is on chronic warfarin which will be continued. /[id number]/MODL
[2018-05-15] MEDS: WARFARIN SODIUM 5 MG TAB PO SCH (20:25)
[2018-05-15] MEDS: ATORVASTATIN CALCIUM 20 MG TAB PO SCH (20:25)
[2018-05-15] MEDS: METOPROLOL TARTRATE 25 MG TAB PO SCH (20:25)
[2018-05-15] MEDS: ONDANSETRON 4 MG/2 ML VIAL IVP PRN (20:56)
[2018-05-16] MEDS: NS 1,000 ML IV SCH ×2 (02:43→14:40)
[2018-05-16 05:31] LABS: INR 2.05 (0.83-1.16); PROTIME(PATIENT) 23.2 SEC (12.0-15.0)
[2018-05-16] MEDS: ONDANSETRON 4 MG/2 ML VIAL IVP PRN ×2 (09:56→14:44)
[2018-05-16] MEDS: METOPROLOL TARTRATE 25 MG TAB PO SCH (09:59)
[2018-05-16] MEDS: ASPIRIN 81 MG CHEWABLE TAB PO SCH (09:59)
--- NOTE | 2018-05-16 15:26 | ASMTCMCOM ---
CM Note CM Note Notes: Pt in for vertigo. PT rec home. CM to follow. Date Signed: 05/16/2018 03:25 PM Electronically Signed By:LEN Camilo
--- NOTE | 2018-05-16 16:24 | HOSPPROG ---
Hospitalist Progress Note Assessment/Plan: * Peripheral vertigo -doubt CVA - already on ASA + warfarin - head CT negative -continue supportive care - PT/OT * CAD s/p CABG -patient very concerned his metoprolol causing his vertigo -change to alternative agent per patient request - coreg -not bradycardic or hypotensive * Mitral valve repair -warfarin goal 2-3 for [address] surgery Subjective: Still very dizzy but better Objective: Vital Signs Temp Pulse Resp BP Pulse Ox 36.8 C 81 16 113/67 95 05/16/18 08:00 05/16/18 09:59 05/16/18 08:00 05/16/18 09:59 05/16/18 08:00 05/15/18 05/16/18 05/17/18 05:59 05:59 05:59 Intake Total 1400 Output Total 300 550 Balance 1100 -550 PT 23.2 SEC (12.0-15.0) H 05/16/18 05:00 INR 2.05 (0.83-1.16) H 05/16/18 05:00 - Physical Exam Constitutional: no apparent distress, appears nourished, not in pain Cardiovascular: regular rate and rhythym, no murmur, rub, or gallop Respiratory: no respiratory distress, no rales or rhonchi, clear to auscultation Gastrointestinal: normoactive bowel sounds, soft, non-tender abdomen, no palpable masses Skin: no rashes or abrasions, no fluctuance, no induration Neurologic: AAOx3, sensation intact bilaterally Psychiatric: interacting appropriately, not anxious, not encephalopathic, thought process linear ICD10 Worksheet Patient Problems: Problems Problem Status Onset Vertigo Acute Acute blood loss anemia Acute CAD (coronary artery disease) Acute Mitral regurgitation Acute S/P coronary artery bypass graft x 4 Acute S/P mitral valve repair Acute
--- NOTE | 2018-05-16 16:43 | PDMN ---
Medical Necessity Medical necessity: MCG: M155, dizziness, A-1 day. 67 y/o with continued severe , persistent vertigo requiring continued IV fluids and combination of IV antiemetics. Hx of recent CABG and mitral valve repair less than 2 months ago. Greater than 2 MN needed for ongoing evaluation of vertigo. Status changed from OBS to IN 05/16 at 1316.
[2018-05-16] MEDS: CARVEDILOL 3.125 MG TAB PO SCH (18:02)
[2018-05-16] MEDS: WARFARIN SODIUM 5 MG TAB PO SCH (22:30)
[2018-05-16] MEDS: ATORVASTATIN CALCIUM 20 MG TAB PO SCH (22:30)
[2018-05-17 05:39] LABS: INR 2.32 (0.83-1.16); PROTIME(PATIENT) 25.5 SEC (12.0-15.0)
[2018-05-17] MEDS: ASPIRIN 81 MG CHEWABLE TAB PO SCH (09:50)
[2018-05-17] MEDS: CARVEDILOL 3.125 MG TAB PO SCH (09:50)
[2018-05-17 10:02] VITALS: BP 135/91
--- NOTE | 2018-05-17 14:13 | ASMTLACE ---
LACE Length of stay for Answers: 1 day current admission Acuity / Level of Answers: No Care: Did the patient have an inpatient admission? Comorbidities - select Answers: Coronary Artery Disease all that apply # of Emergency department Answers: 1-2 visits in the last 6 months Score: 4 Date Signed: 05/17/2018 02:12 PM Electronically Signed By:LEN Camilo
--- NOTE | 2018-05-17 14:13 | ASMTCMCOM ---
CM Note CM Note Notes: Pt medically stable for d/c, no CM d/c needs identified. Date Signed: 05/17/2018 02:13 PM Electronically Signed By:LEN Camilo
--- NOTE | 2018-05-17 20:53 | GDS ---
[f rep st] DISCHARGE SUMMARY DISCHARGE DIAGNOSES: 1. Benign positional vertigo. 2. Coronary artery disease, status post coronary artery bypass graft. 3. Recent mitral valve repair. HISTORY: The patient is a 67-year-old male who recently underwent cardiac bypass surgery with mitral valve repair. He has been doing well since surgery but developed severe acute onset of vertigo. A head CT was negative. He is chronically on aspirin and warfarin and clinical suspicion for stroke wa s low. Clinically, this is most consistent with a benign positional vertigo. Physical Therapy was co nsulted for Ron maneuvers and he did have improvement with the maneuvers. He has improved to the p oint of being able to discharge home. He will pursue outpatient physical therapy if symptoms persist . DISCHARGE MEDICATIONS: Please see computerized record for full detailed list. NEW MEDICATIONS: There are no new medications given at the time of hospital discharge. ADDITIONAL DISCHARGE INSTRUCTIONS: Follow up with primary care, Dr. Lay. TIME SPENT: Greater than 30 minutes' time was spent arranging this discharge. The patient was seen and examined by me on the day of discharge. /[id number]/MODL
== END 2018-05-17 12:22 | disposition home or self-care (01) | DRG 149 ==
LOC: EDUNIT# → INTOOBSV 13:24 → F3N 14:40 → OBSVTOIN 05-16 13:16
PROVIDERS: ADMIT Internal Medicine; ATTEND Internal Medicine
DX: H81.13 Benign paroxysmal vertigo, bilateral (principal); I25.10 Atherosclerotic heart disease of native coronary artery without angina pectoris; Z95.1 Presence of aortocoronary bypass graft; Z79.01 Long term (current) use of anticoagulants; Z79.82 Long term (current) use of aspirin
CPT/HCPCS: 97110-GP; 97112-GP; 97116-GP; 97162-GP; 97165-GO; G0378; G8978-GP-CI; G8978-GP-CJ; G8979-GP-CI; G8980-GP-CI; G8987-GO-CI; G8988-GO-CI; G8989-GO-CI; J2405; J2550; Q9967

== ENCOUNTER → 2018-07-12 | Outpatient (CLI) | payer OTHER | LOC: FIMAGING 12:54 | PROVIDERS: ATTEND Otolaryngology Facial Plastic Surgery | DX: E07.9 Disorder of thyroid, unspecified (principal) ==

== ENCOUNTER → 2018-07-22 | Outpatient (CLI) | payer OTHER ==
[~2018-07-22] MED LIST changes: -AMINOCAPROIC ACID 5 GM/20 ML VIAL IV ONE; +GADOBUTROL 10 ML VIAL IVP ONE; -INSULIN REGULAR HUMAN 100 UNIT in NS 100 ML IV ONE; -MANNITOL 25% 12.5 GM/50 ML VIAL IVP ONE; -NOREPINEPHRINE BITARTRATE 16 MG in NS 250 ML IV ONE; -PHENYLEPHRINE HCL 50 MG in NS 250 ML IV ONE; -SODIUM BICARBONATE 20 MEQ, LIDOCAINE 1% 10 ML in NORMOSOL-R 1,000 ML MISC ONE; -VERAPAMIL 5 MG, NITROGLYCERIN 2.5 MG, HEPARIN 500 UNIT, SODIUM BICARBONATE 0.2 MEQ in L... MISC ONE
== END ==
LOC: FIMAGING 16:16
PROVIDERS: ATTEND Psychiatry & Neurology Neurology
DX: R90.82 White matter disease, unspecified (principal); I25.2 Old myocardial infarction; G93.89 Other specified disorders of brain
CPT/HCPCS: 70553; A9585; 82565-PO

== ENCOUNTER 2018-10-14 07:35 | Day surgery (SDC) | payer OTHER ==
[2018-10-14] MEDS ORDERED: LR 1,000 ML IV ONE (08:09)
--- NOTE | 2018-10-14 08:41 | PDANEPAE ---
ANE History of Present Illness colon ANE Past Medical History - Cardiovascular History Hx Hypertension: No Hx Arrhythmias: No Hx Chest Pain: No Hx Coronary Artery / Peripheral Vascular Disease: Yes Hx CHF / Valvular Disease: Yes Hx Palpitations: No Cardiovascular History Comment: hx of cabg x4 and mvr with kymberly 03/25/18. cath 03/13/18. followed by [facility] - Pulmonary History Hx COPD: No Hx Asthma/Reactive Airway Disease: No Hx Recent Upper Respiratory Infection: No Hx Oxygen in Use at Home: No Hx Sleep Apnea: No Sleep Apnea Screening Result - Last Documented: Negative - Neurologic History Hx Cerebrovascular Accident: No Hx Seizures: No Hx Dementia: No - Endocrine History Hx Diabetes: No Hypothyroid: No Hyperthyroid: No Obesity: no - Renal History Hx Renal Disorders: No - Liver History Hx Hepatic Disorders: No - Neurological & Psychiatric Hx Hx Neurological and Psychiatric Disorders: No - Cancer History Hx Cancer: No - Congenital Disorder History Hx Congenital Disorders: No - GI History GERD: no Hx Gastrointestinal Disorders: Yes Gastrointestinal History Comment: hx of colonoscopy spring 2017 removed polyps this colonoscopy is a follow up of that - Other Health History Other Health History: wears contacts- patient states he will not wear DOP - Chronic Pain History Chronic Pain: No - Surgical History Prior Surgeries: 03/25/18 MVR, CABG with Kymberly. 03/13/18 cardiac cath. spring 2017 colonoscopy ANE Review of Systems Review of Systems: - Exercise capacity Exercise capacity: >=4 METS METS (RN): 4 METS ANE Patient History - Allergies Allergies/Adverse Reactions: codeine Allergy (Verified 10/07/18 11:35) "DOESN'T WORK" - Home Medications Home medications: home medication list seen and reviewed Home Medications: Cholecalciferol Vit D3 [Vitamin D3 (*)] 03/06/18 [Last Taken 10/13/18] Aspirin [Aspirin 81mg (*)] 03/13/18 [Last Taken 10/07/18] Atorvastatin Calcium [Lipitor 20 mg (*)] 10/07/18 [Last Taken 10/13/18] - NPO status NPO Status: no food or drink >8 hours NPO Since - Liquids (Date): 10/14/18 NPO Since - Liquids (Time): 00:00 NPO Since - Solids (Date): 10/13/18 NPO Since - Solids (Time): 09:00 - Anes Hx Anes Hx: no prior problems - Smoking Hx Smoking Status: Never smoked - Family Anes Hx Family Hx Anesthesia Complications: none ANE Labs/Vital Signs - Vital Signs Blood Pressure: 131/84 Heart Rate: 87 Respiratory Rate: 20 O2 Sat (%): 96 Height: 167.64 cm Weight: 66.678 kg ANE Physical Exam - Airway Mallampati Score: Class 2 Mouth exam: normal dental/mouth exam - Pulmonary Pulmonary: no respiratory distress - Cardiovascular Cardiovascular: regular rate and rhythym - ASA Status ASA Status: II ANE Anesthesia Plan Anesthesia Plan: GA with mask, MAC
[2018-10-14] MEDS ORDERED: MIDAZOLAM 2 MG/2 ML VIAL ONE (08:48)
[2018-10-14] MEDS ORDERED: PROPOFOL/EMULSION 500 MG/50 ML BOTTLE IV ONE (08:48)
[2018-10-14] MEDS ORDERED: LIDOCAINE 2% 5 ML SDV ONE (08:50)
--- NOTE | 2018-10-14 09:10 | PDGENHP ---
History & Physical Chief Complaint: Polyp on previous colonscopy Pertinent Past, Social, Family History: Cardiovascular History Comment: hx of cabg x4 and mvr with kymberly 03/25/18. cath 03/13/18. [facility] by [facility]. - Pulmonary History. Hx COPD: No. Hx Asthma/Reactive Airway Disease: No. Hx Recent Upper Respiratory Infection: No. Hx Oxygen in Use at Home: No. Hx Sleep Apnea: No. Sleep Apnea Screening Result - Last Documented: Negative. - Neurologic History. Hx Cerebrovascular Accident: No. Hx Seizures: No. Hx Dementia: No. - Endocrine History. Hx Diabetes: No. Hypothyroid: No. Hyperthyroid: No. Obesity: no. - Renal History. Hx Renal Disorders: No. - Liver History. Hx Hepatic Disorders: No. - Neurological & Psychiatric Hx. Hx Neurological and Psychiatric Disorders: No. - Cancer History. Hx Cancer: No. - Congenital Disorder History. Hx Congenital Disorders: No. - GI History. GERD: no. Hx Gastrointestinal Disorders: Yes. Gastrointestinal History Comment : hx of colonoscopy spring 2017 removed polyps this colonoscopy is a follow up of that. - Other Health History. Other Health History: wears contacts- patient states he will not wear DOP. - Chronic Pain History. Chronic Pain: No. - Surgical History. Prior Surgeries: 03/25/18 MVR, CABG with Kymberly. 03/13 cardiac cath. spring 2017 colonoscopy. - Exercise capacity. Exercise capacity: >=4 METS. METS (RN): 4 METS. ANE Patient History. - Allergies. Allergies/Adverse Reactions: codeine Allergy (Verified 10/07/18 11:35). "DOESN 'T WORK". - Home Medications. Home medications: home medication list seen and reviewed. Home Medications: Cholecalciferol Vit D3 [Vitamin D3 (*)] 03/06/18 [Last Taken 10/13/18]. Aspirin [Aspirin 81mg (*)] 03/13/18 [Last Taken ]. Atorvastatin Calcium [Lipitor 20 mg (*)] 10/07/18 [Last Taken 10/13/18] Relevant Physical Exam: Lungs clear. Cardiac normal s1s2
[2018-10-14] MEDS ORDERED: ACETAMINOPHEN 500 MG TAB PO PRN (09:44)
[2018-10-14] MEDS ORDERED: fentaNYL 100 MCG/2 ML INJ IVP PRN (09:44)
[2018-10-14] MEDS ORDERED: NALOXONE HCL 0.4 MG/ML INJ IVP PRN (09:44)
[2018-10-14] MEDS ORDERED: ALBUTEROL 3 ML DEYVIAL IH PRN (09:44)
--- NOTE | 2018-10-14 09:44 | GIREPORT ---
[facility] Surgical Services - Endoscopy Department Patient Name: Glenn Godinez Procedure Date: 10/14/2018 8:20 AM Patient Type: Outpatient Attending MD/ ER Physician: Xavier Gomes MD Procedure: Colonoscopy Indications: Adenomatous polyps in the colon, Follow-up for history of adenomatous p olyps in the colon, Colonscopy 02/27 with 12 mm polyp cecum, TVA, follow up. Providers: Xavier Gomes MD Medicines: Propofol per Anesthesia Complications: No immediate complications. Description of Procedure: After obtaining informed consent, the scope was passed under direct vis ion. Throughout the procedure, the patient's blood pressure, pulse, and oxyg en saturations were monitored continuously. The Colonoscope with irrigatio n channel was introduced through the anus and advanced to the cecum, identified by appendiceal orifice and ileocecal valve. The colonoscopy was performed without difficulty. The patient tolerated the procedure well. The quality of the bowel preparation was good. The ileocecal valve, appendi ceal orifice, and rectum were photographed. Findings: Many small and large-mouthed diverticula were found in the sigmoid colo n. A 4 mm polyp was found in the sigmoid colon. The polyp was sessile. The polyp was removed with a cold snare. Resection and retrieval were compl ete. A 4 mm polyp was found in the proximal transverse colon. The polyp was sessile. The polyp was removed with a cold snare. Resection was complet e, but the polyp tissue was not retrieved. A 6 mm polyp was found in the mid ascending colon. The polyp was sessil e. The polyp was removed with a cold snare. Resection and retrieval were complete. Cecum was normal without evidence of residual polyp from previous polypectomy. The exam was otherwise without abnormality on direct and retroflexion v iews. Estimated Blood Loss: Estimated blood loss: none. Post Op Diagnosis: - Diverticulosis in the sigmoid colon. - One 4 mm polyp in the sigmoid colon, removed with a cold snare. Resec dagoberto and retrieved. - One 4 mm polyp in the proximal transverse colon, removed with a cold snare. Complete resection. Polyp tissue not retrieved. - One 6 mm polyp in the mid ascending colon, removed with a cold snare. Resected and retrieved. - The examination was otherwise normal on direct and retroflexion views . Recommendation: - Patient has a contact number available for emergencies. The signs and symptoms of potential delayed complications were discussed with the pat ient. Return to normal activities tomorrow. Written discharge instructions we re provided to the patient. - High fiber diet. - Continue present medications. - Await pathology results. - Repeat colonoscopy in 3 years for surveillance. - Thank you for allowing me to participate in the care of your patient. Attending Participation: I personally performed the entire procedure. Xavier Gomes MD Xavier Gomes MD 10/14/2018 9:44:27 AM This report has been signed electronicallyStjohn paul Gomes MD Number of Addenda: 0 Note Initiated On: 10/14/2018 8:20 AM Total Procedure Duration Time 0 hours 15 minutes 6 seconds [email or web address]
--- NOTE | 2018-10-14 09:45 | POSTANESTH ---
Post Anesthetic Evaluation Cardiovascular Status: Normal, Stable Respiratory Status: Normal, Stable Level of Consciousness/Mental Status: Can Participate in Eval Pain Control: Adequate, Prn Tx Ordered Nausea/Vomiting Control: Adequate, Prn Tx Ordered Complications Possibly Related to Anesthesia: None Noted
[2018-10-14 10:53] VITALS: BP 102/76
== END 2018-10-14 10:59 | disposition home or self-care (01) ==
LOC: FSGY 07:35
PROVIDERS: ATTEND Internal Medicine Gastroenterology
DX: Z09 Encounter for follow-up examination after completed treatment for conditions other than malignant neoplasm (principal); D12.5 Benign neoplasm of sigmoid colon; D12.2 Benign neoplasm of ascending colon; K57.30 Diverticulosis of large intestine without perforation or abscess without bleeding; Z79.82 Long term (current) use of aspirin; Z86.010 Personal history of colon polyps; Z95.1 Presence of aortocoronary bypass graft; Z95.2 Presence of prosthetic heart valve; Z98.890 Other specified postprocedural states
CPT/HCPCS: J2250; J2704